=== PATIENT | female | born 1985 | race American Indian/Alaskan Native ===

== ENCOUNTER 2017-11-07 12:33 | Emergency (ER) | payer MEDICAID ==
[~2017-11-07] VITALS: Ht 167.6 cm; Wt 63.7 kg
[~2017-11-07 12:33] MED LIST: AMYL1CAP57 PO; BROM118S7 PO; CEPH500C5 PO; DULO60CA45 PO; INSU100C10 SQ; INSU100V9 SQ; LISI-600 PO; MULT-342 PO; ONDA4TAB12 PO; ONDA4TAB6 PO
[2017-11-07 13:26] LABS: BASOPHILS % (AUTO) 0.5 % (0-1); EOSINOPHILS # (AUTO) 0.1 X10'3 (0-0.9); EOSINOPHILS % (AUTO) 1.5 % (0-6); HEMATOCRIT 35.3 % (35.0-45.0); HEMOGLOBIN 12.3 g/dl (12.0-16.0); LYMPHOCYTES % (AUTO) 30.7 % (21-51); MEAN CORPUSCULAR HEMOGLOBIN 28.1 PG (27.0-31.0); MEAN CORPUSCULAR HGB CONC 34.8 % (33.0-36.5); MEAN CORPUSCULAR VOLUME 80.9 FL (78-98); MEAN PLATELET VOLUME 9.9 FL (7.4-10.4); MONOCYTES # (AUTO) 0.3 X10'3 (0-0.9); MONOCYTES % (AUTO) 5.1 % (2-12); NEUTROPHILS % (AUTO) 62.2 % (42-75); PLATELET COUNT 312 X10'3 (140-440); RED BLOOD COUNT 4.37 X10'6 (4.20-5.60); RED CELL DISTRIBUTION WIDTH 14.2 % (11.5-14.5); WHITE BLOOD COUNT 6.4 X10'3 (4.5-11.0)
[2017-11-07 13:29] LABS: CLARITY,URINE SLIGHTLY CLOUDY (Clear); COLOR,URINE STRAW (Yellow); GLUCOSE, URINE >=1000 mg/dl (Neg); KETONES,URINE NEGATIVE (Neg); LEUKOCYTE ESTERASE ,URINE NEGATIVE (Neg); NITRITES, URINE POSITIVE (Neg); OCCULT BLOOD,URINE TRACE-INTACT (Neg); PH,URINE 5.5 (4.8-8.0); PROTEIN,URINE TRACE mg/dl (Neg); UROBILINOGEN,URINE 0.2 E.U/dL (0.2-1.0)
[2017-11-07 13:30] LABS: URINE HCG NEGATIVE (NEG)
[2017-11-07 13:31] LABS: UA COLLECTION TYPE CLN CATCH MIDSTREAM
[2017-11-07 13:35] LABS: PROTHROMBIN TIME 10.5 SECONDS (9.0-12.0)
[2017-11-07 13:44] LABS: ALANINE AMINOTRANSFERASE 31 U/L (12-78); ALBUMIN 3.5 G/DL (3.4-5.0); ALBUMIN/GLOBULIN RATIO 0.8 (1.1-1.5); ALKALINE PHOSPHATASE 173 IU/L (46-116); ANION GAP 13 (8-16); ASPARTATE AMINO TRANSFERASE 24 U/L (10-37); BILIRUBIN,TOTAL 0.3 MG/DL (0.1-1.0); BLOOD UREA NITROGEN 5 MG/DL (7-18); BUN/CREATININE RATIO 5.6 (6.6-38.0); CALCIUM 8.3 MG/DL (8.5-10.1); CHLORIDE 94 MMOL/L (99-107); LIPASE < 50 U/L (73-393); POTASSIUM 3.9 MMOL/L (3.5-5.1); SODIUM 133 MMOL/L (135-145); TOTAL CARBON DIOXIDE 26.2 MMOL/L (24-32); TOTAL PROTEIN 7.9 G/DL (6.4-8.2); eGFR 72 ML/MIN
[2017-11-07 13:45] LABS: GLUCOSE 533 MG/DL (70-104)
[2017-11-07 13:49] LABS: BACTERIA,URINE 4+ /HPF (Neg); SQUAMOUS EPITHELIAL CELL,UR MODERATE /LPF (FEW)
[2017-11-07 13:51] LABS: WBC,URINE 0-4 /HPF (0-4)
[2017-11-07] MEDS ORDERED: ondansetron/PF 4mg/2ml inj IV ONE (14:10)
[2017-11-07] MEDS ORDERED: HYDROmorphone 1 mg/ml syringe IV PRN (14:10)
[2017-11-07] MEDS ORDERED: HYDROmorphone 2mg/ml vial IV ONE (14:20)
[2017-11-07 14:33] LABS: TROPONIN I < 0.04 NG/ML (0.0-0.05)
[2017-11-07] MEDS ORDERED: normal saline 1000ml 1,000 ML IV ONE ×2 (14:35)
[2017-11-07] MEDS: HYDROmorphone 2mg/ml vial IV PRN ×2 (15:16→15:39)
[2017-11-07] MEDS ORDERED: ONDA4TAB6 PO (15:27)
[2017-11-07] MEDS ORDERED: HYDROmorphone 1 mg/ml syringe IV ONE (15:30)
[2017-11-07 16:24] VITALS: BP 155/116
== END 2017-11-07 16:26 | disposition home or self-care (01) ==
LOC: ER 12:34
DX: E86.0 Dehydration (principal); E11.65 Type 2 diabetes mellitus with hyperglycemia; E78.00 Pure hypercholesterolemia, unspecified; I10 Essential (primary) hypertension; G89.29 Other chronic pain; J45.909 Unspecified asthma, uncomplicated; Z90.49 Acquired absence of other specified parts of digestive tract; Z88.5 Allergy status to narcotic agent; Z79.4 Long term (current) use of insulin; Z98.890 Other specified postprocedural states; Z56.0 Unemployment, unspecified
CPT/HCPCS: 36415; 80053; 81001; 81025; 82948; 83690; 84484; 85025; 85610; 87077; 87088; 87186; 96361; 96374; 96375; 96376; 99284; J1170; J2405; J7030

== ENCOUNTER 2017-11-11 14:44 | Inpatient (IN) | payer MEDICAID ==
[~2017-11-11] VITALS: Ht 167.6 cm; Wt 64.0 kg
[2017-11-11] MEDS ORDERED: normal saline 1000ML IV soln IVB ONE ×2 (15:15→16:40)
[2017-11-11] MEDS ORDERED: diphenhydrAMINE 50 mg/ml inj IV ONE (15:15)
[2017-11-11] MEDS ORDERED: proCHLORperazine 10 MG/2 ml inj IV ONE (15:15)
[2017-11-11] MEDS ORDERED: morphine 4 MG/ML inj SYRINge IV ONE (15:15)
[2017-11-11] MEDS ORDERED: ondansetron/PF 4mg/2ml inj IV ONE (15:15)
[2017-11-11 15:46] LABS: BASOPHILS % (AUTO) 0.2 % (0-1); EOSINOPHILS # (AUTO) 0.1 X10'3 (0-0.9); EOSINOPHILS % (AUTO) 1.3 % (0-6); HEMATOCRIT 32.4 % (35.0-45.0); HEMOGLOBIN 11.2 g/dl (12.0-16.0); LYMPHOCYTES # (AUTO) 1.6 X10'3 (1.1-4.8); LYMPHOCYTES % (AUTO) 19.5 % (21-51); MEAN CORPUSCULAR HEMOGLOBIN 28.1 PG (27.0-31.0); MEAN CORPUSCULAR HGB CONC 34.7 % (33.0-36.5); MEAN PLATELET VOLUME 9.7 FL (7.4-10.4); MONOCYTES # (AUTO) 0.4 X10'3 (0-0.9); MONOCYTES % (AUTO) 4.6 % (2-12); NEUTROPHILS # (AUTO) 6.1 X10'3 (1.8-7.7); NEUTROPHILS % (AUTO) 74.4 % (42-75); PLATELET COUNT 273 X10'3 (140-440); RED BLOOD COUNT 4.01 X10'6 (4.20-5.60); RED CELL DISTRIBUTION WIDTH 13.8 % (11.5-14.5); WHITE BLOOD COUNT 8.3 X10'3 (4.5-11.0)
[2017-11-11] MEDS ORDERED: mag hydrox/Alum hydrox/simeth 30ml oral suspension PO PRN (15:55)
[2017-11-11] MEDS ORDERED: magnesium 4gm in 100ml NS 100 ML IV PRN (15:55)
[2017-11-11] MEDS ORDERED: potassium Cl 20 mEq SR tablet PO PRN (15:55)
[2017-11-11] MEDS ORDERED: dextrose ORAL solution 15 GM/59 ML bottle PO PRN ×2 (15:55)
[2017-11-11] MEDS ORDERED: acetaminophen 325mg tablet PO PRN ×2 (15:55)
[2017-11-11] MEDS ORDERED: magnesium Cl slow-release 64mg tablet PO PRN (15:55)
[2017-11-11] MEDS ORDERED: glucagon, human recombinant 1mg kit SUBCUT PRN (15:55)
[2017-11-11] MEDS ORDERED: HYDROcodone/acetaminophen 5mg/325mg tablet PO PRN (15:55)
[2017-11-11] MEDS ORDERED: magnesium 2GM in 50ml NS 50 ML IV PRN (15:55)
[2017-11-11] MEDS ORDERED: dextrose 50%-water 50ml dispensing syringe IV PRN ×2 (15:55)
[2017-11-11] MEDS ORDERED: potassium Cl 40MEQ/NS 500ml 500 ML IV PRN ×2 (15:55)
[2017-11-11] MEDS ORDERED: MESSAGE TO PHARMACY PO ONE (15:55)
[2017-11-11] MEDS ORDERED: magnesium hydroxide 30ml (MOM) UD suspension PO PRN (15:55)
[2017-11-11 16:09] LABS: HEMOGLOBIN A1C > 14.0 % (4.5-6.2)
[2017-11-11 16:19] LABS: ALANINE AMINOTRANSFERASE 43 U/L (12-78); ALBUMIN 3.4 G/DL (3.4-5.0); ALBUMIN/GLOBULIN RATIO 0.9 (1.1-1.5); ALKALINE PHOSPHATASE 189 IU/L (46-116); ANION GAP 10 (8-16); ASPARTATE AMINO TRANSFERASE 91 U/L (10-37); BILIRUBIN,TOTAL 0.2 MG/DL (0.1-1.0); BLOOD UREA NITROGEN 12 MG/DL (7-18); CALCIUM 7.9 MG/DL (8.5-10.1); CHLORIDE 90 MMOL/L (99-107); POTASSIUM 3.6 MMOL/L (3.5-5.1); SODIUM 124 MMOL/L (135-145); TOTAL CARBON DIOXIDE 23.6 MMOL/L (24-32); TOTAL PROTEIN 7.3 G/DL (6.4-8.2); eGFR 52 ML/MIN
[2017-11-11 16:21] LABS: GLUCOSE 660 MG/DL (70-104)
[2017-11-11 16:32] LABS: AMYLASE 48 U/L (25-115); LIPASE < 50 U/L (73-393)
[2017-11-11] MEDS ORDERED: insulin regular, human 10 units/0.1 ml syringe IV ONE (16:40)
[2017-11-11] MEDS: pantoprazole 40 MG vial IV SCH (16:53)
[2017-11-11] MEDS: morphine 5 MG/ML injection IV PRN ×2 (16:56→20:16)
[2017-11-11 17:31] LABS: ABG BASE EXCESS -6.6 mmol/L (-2.0-3.0); ABG HCO3 18.2 mmol/L (22.0-26.0); ABG OXYGEN SATURATION 93.6 % (95-98); ABG PH (T) 7.347 (7.350-7.450); ABG PO2 (T) 72.3 mmHg (83-108); ALLEN'S TEST Positive; FCOHb 0.3 % (0.5-1.5); FMetHb 0.3 % (0.3-1.12); TOTAL HEMOGLOBIN 11.9 G/dl (12.0-16.0)
[2017-11-11] MEDS ORDERED: METO10TA3 (17:43)
[2017-11-11] MEDS ORDERED: DIPH1TAB29 (17:43)
[2017-11-11] MEDS ORDERED: AMIT-106 (17:43)
[2017-11-11] MEDS ORDERED: HYDR-3964 (17:43)
[2017-11-11] MEDS: normal saline 1000ml 1,000 ML IV SCH ×2 (17:59→22:34)
[2017-11-11 19:13] LABS: CLARITY,URINE CLOUDY (Clear); COLOR,URINE STRAW (Yellow); GLUCOSE, URINE >=1000 mg/dl (Neg); KETONES,URINE NEGATIVE (Neg); LEUKOCYTE ESTERASE ,URINE SMALL (Neg); NITRITES, URINE NEGATIVE (Neg); OCCULT BLOOD,URINE MODERATE (Neg); PROTEIN,URINE NEGATIVE (Neg); UROBILINOGEN,URINE 0.2 E.U/dL (0.2-1.0)
[2017-11-11 19:22] LABS: UA COLLECTION TYPE CLN CATCH MIDSTREAM
[2017-11-11 19:28] LABS: WBC,URINE 20-30 /HPF (0-4)
[2017-11-11 19:30] LABS: BACTERIA,URINE 4+ /HPF (Neg); SQUAMOUS EPITHELIAL CELL,UR MODERATE /LPF (FEW)
[2017-11-11 19:32] LABS: AMORPHOUS URATES 1+
[2017-11-11 19:33] LABS: YEAST FEW /HPF (NEGATIVE)
[2017-11-11] MEDS ORDERED: cefepime 2g/NS 100ml ADVANTAGE 100 ML IV SCH (20:00)
[2017-11-11] MEDS: ondansetron/PF 4mg/2ml inj IV PRN (20:16)
[2017-11-11] MEDS: cefepime 1GM/100ML NS ADD-VANTAGE BAG IV SCH (20:19)
[2017-11-11] MEDS: HYDROcodone/acetaminophen 10/325mg tab PO PRN (20:23)
[2017-11-11] MEDS ORDERED: temazepam 15mg capsule PO PRN (21:00)
[2017-11-11] MEDS: diatr meglu/diatrizoate 30ml oral sol.-(3 dose) bottle PO SCH (21:33)
[2017-11-11] MEDS: insulin glargine (Lantus) pen - multi-dose SQ SCH (21:54)
[2017-11-11 22:50] VITALS: BP 124/99
[2017-11-12] MEDS: morphine 5 MG/ML injection IV PRN ×6 (01:13→21:30)
[2017-11-12] MEDS: normal saline 1000ml 1,000 ML IV SCH ×3 (01:15→17:59)
[2017-11-12] MEDS: HYDROcodone/acetaminophen 10/325mg tab PO PRN ×5 (03:41→22:42)
[2017-11-12 05:20] LABS: BASOPHILS # (AUTO) 0.1 X10'3 (0-0.2); EOSINOPHILS # (AUTO) 0.1 X10'3 (0-0.9); EOSINOPHILS % (AUTO) 1.8 % (0-6); HEMATOCRIT 31.6 % (35.0-45.0); HEMOGLOBIN 10.9 g/dl (12.0-16.0); LYMPHOCYTES # (AUTO) 2.6 X10'3 (1.1-4.8); LYMPHOCYTES % (AUTO) 36.6 % (21-51); MEAN CORPUSCULAR HGB CONC 34.6 % (33.0-36.5); MEAN CORPUSCULAR VOLUME 81.1 FL (78-98); MONOCYTES # (AUTO) 0.5 X10'3 (0-0.9); MONOCYTES % (AUTO) 7.2 % (2-12); NEUTROPHILS # (AUTO) 3.8 X10'3 (1.8-7.7); NEUTROPHILS % (AUTO) 53.4 % (42-75); PLATELET COUNT 248 X10'3 (140-440); RED BLOOD COUNT 3.89 X10'6 (4.20-5.60); RED CELL DISTRIBUTION WIDTH 14.5 % (11.5-14.5); WHITE BLOOD COUNT 7.1 X10'3 (4.5-11.0)
[2017-11-12 05:53] LABS: ALANINE AMINOTRANSFERASE 36 U/L (12-78); ALBUMIN 3.1 G/DL (3.4-5.0); ALBUMIN/GLOBULIN RATIO 0.8 (1.1-1.5); ALKALINE PHOSPHATASE 160 IU/L (46-116); ANION GAP 7 (8-16); ASPARTATE AMINO TRANSFERASE 30 U/L (10-37); BILIRUBIN,TOTAL 0.2 MG/DL (0.1-1.0); BLOOD UREA NITROGEN 7 MG/DL (7-18); BUN/CREATININE RATIO 11.7 (6.6-38.0); CALCIUM 7.9 MG/DL (8.5-10.1); CHLORIDE 104 MMOL/L (99-107); GLUCOSE 261 MG/DL (70-104); MAGNESIUM 1.7 MG/DL (1.5-2.4); POTASSIUM 3.2 MMOL/L (3.5-5.1); SODIUM 137 MMOL/L (135-145); TOTAL CARBON DIOXIDE 26.1 MMOL/L (24-32); TOTAL PROTEIN 6.8 G/DL (6.4-8.2); eGFR > 90 ML/MIN
[2017-11-12] MEDS: cefepime 1GM/100ML NS ADD-VANTAGE BAG IV SCH ×2 (07:35→20:32)
[2017-11-12] MEDS: pantoprazole 40 MG vial IV SCH (07:35)
[2017-11-12] MEDS: diatr meglu/diatrizoate 30ml oral sol.-(3 dose) bottle PO SCH ×2 (07:35→09:30)
[2017-11-12] MEDS: potassium Cl 20 mEq SR tablet PO PRN ×3 (07:36→16:46)
[2017-11-12] MEDS: lisinopril 20mg tablet PO SCH (07:36)
[2017-11-12 08:00] VITALS: BP 142/91
[2017-11-12] MEDS ORDERED: PROTEASE PO SCH (08:00)
[2017-11-12] MEDS ORDERED: AMYLASE PO SCH (08:00)
[2017-11-12] MEDS ORDERED: LIPASE PO SCH (08:00)
[2017-11-12] MEDS: enoxaparin 40mg/0.4ml syringe SQ SCH (08:00)
[2017-11-12] MEDS: K and/or MAG REPLACEMENT MC SCH (08:00)
[2017-11-12] MEDS ORDERED: iohexol 300mg/ml 100ml inj. ONE (08:56)
[2017-11-12] MEDS: ondansetron/PF 4mg/2ml inj IV PRN ×2 (09:46→21:30)
[2017-11-12] MEDS ORDERED: FLU VACC QS2017-18 36MOS UP/PF 60 MCG/0.5 ML SYRINGE IMVAC ONE (10:00)
[2017-11-12] MEDS ORDERED: pneumococcal 23-VAL P-sac vacc 25 mcg/0.5ml vial IMVAC ONE (10:00)
[2017-11-12] MEDS: LIPASE/PROTEASE/AMYLASE 4,200 unit CAPSULE.DR PO SCH ×3 (10:42→17:52)
[2017-11-12 11:00] VITALS: BP 142/102
[2017-11-12] MEDS: insulin Lispro (HumaLOG) vial - multi-dose SQ SCH ×2 (13:40→20:05)
[2017-11-12 19:30] VITALS: BP 130/87
[2017-11-12] MEDS: lactobacillus rhamnosus 10,000 MMU CELLS/CAPSULE PO SCH (20:32)
[2017-11-12] MEDS: insulin glargine (Lantus) pen - multi-dose SQ SCH (21:52)
[2017-11-12 23:30] VITALS: BP 163/106
[2017-11-13] MEDS: normal saline 1000ml 1,000 ML IV SCH ×3 (01:29→14:56)
[2017-11-13] MEDS: morphine 5 MG/ML injection IV PRN ×4 (01:34→17:25)
[2017-11-13] MEDS: HYDROcodone/acetaminophen 10/325mg tab PO PRN ×4 (03:51→16:16)
[2017-11-13] MEDS: ondansetron/PF 4mg/2ml inj IV PRN (05:39)
[2017-11-13 05:43] LABS: BASOPHILS % (AUTO) 0.5 % (0-1); EOSINOPHILS # (AUTO) 0.2 X10'3 (0-0.9); EOSINOPHILS % (AUTO) 2.5 % (0-6); HEMATOCRIT 29.1 % (35.0-45.0); HEMOGLOBIN 9.8 g/dl (12.0-16.0); LYMPHOCYTES # (AUTO) 1.8 X10'3 (1.1-4.8); LYMPHOCYTES % (AUTO) 22.6 % (21-51); MEAN CORPUSCULAR HEMOGLOBIN 27.8 PG (27.0-31.0); MEAN CORPUSCULAR HGB CONC 33.6 % (33.0-36.5); MEAN CORPUSCULAR VOLUME 82.6 FL (78-98); MONOCYTES # (AUTO) 0.6 X10'3 (0-0.9); MONOCYTES % (AUTO) 7.5 % (2-12); NEUTROPHILS # (AUTO) 5.4 X10'3 (1.8-7.7); NEUTROPHILS % (AUTO) 66.9 % (42-75); PLATELET COUNT 226 X10'3 (140-440); RED BLOOD COUNT 3.52 X10'6 (4.20-5.60); RED CELL DISTRIBUTION WIDTH 14.5 % (11.5-14.5); WHITE BLOOD COUNT 8.1 X10'3 (4.5-11.0)
[2017-11-13 06:19] LABS: ALANINE AMINOTRANSFERASE 31 U/L (12-78); ALBUMIN 2.8 G/DL (3.4-5.0); ALBUMIN/GLOBULIN RATIO 0.8 (1.1-1.5); ALKALINE PHOSPHATASE 140 IU/L (46-116); ASPARTATE AMINO TRANSFERASE 20 U/L (10-37); BILIRUBIN,TOTAL 0.3 MG/DL (0.1-1.0); BLOOD UREA NITROGEN 9 MG/DL (7-18); BUN/CREATININE RATIO 12.9 (6.6-38.0); CALCIUM 7.8 MG/DL (8.5-10.1); GLUCOSE 332 MG/DL (70-104); MAGNESIUM 1.7 MG/DL (1.5-2.4); TOTAL PROTEIN 6.2 G/DL (6.4-8.2); eGFR > 90 ML/MIN
[2017-11-13 06:45] LABS: ANION GAP 6 (8-16); CHLORIDE 104 MMOL/L (99-107); POTASSIUM 4.1 MMOL/L (3.5-5.1); SODIUM 136 MMOL/L (135-145)
[2017-11-13 07:17] VITALS: BP 159/101
[2017-11-13] MEDS ORDERED: pantoprazole 40mg Tablet.DR PO SCH (07:30)
[2017-11-13] MEDS: K and/or MAG REPLACEMENT MC SCH (08:00)
[2017-11-13] MEDS: lactobacillus rhamnosus 10,000 MMU CELLS/CAPSULE PO SCH (08:08)
[2017-11-13] MEDS: cefepime 1GM/100ML NS ADD-VANTAGE BAG IV SCH (08:08)
[2017-11-13] MEDS: LIPASE/PROTEASE/AMYLASE 4,200 unit CAPSULE.DR PO SCH ×3 (08:08→17:23)
[2017-11-13] MEDS: enoxaparin 40mg/0.4ml syringe SQ SCH (08:09)
[2017-11-13] MEDS: lisinopril 20mg tablet PO SCH (08:09)
[2017-11-13] MEDS: insulin Lispro (HumaLOG) vial - multi-dose SQ SCH ×2 (08:18→13:29)
[2017-11-13 10:42] VITALS: BP 133/83
[2017-11-13] MEDS ORDERED: morphine 5 MG/ML injection IV ONE (12:15)
[2017-11-13] MEDS ORDERED: cefepime 1GM/100ML NS ADD-VANTAGE BAG IV ONE (17:00)
== END 2017-11-13 19:30 | disposition home or self-care (01) | DRG 463 ==
LOC: ER 14:44 → ED HOLD 15:54 → SUR 3N 23:16
PROVIDERS: ADMIT Internal Medicine; ATTEND Internal Medicine
DX: N39.0 Urinary tract infection, site not specified (principal); E87.2 Acidosis; E11.65 Type 2 diabetes mellitus with hyperglycemia; E78.5 Hyperlipidemia, unspecified; D64.9 Anemia, unspecified; E78.00 Pure hypercholesterolemia, unspecified; F32.9 Major depressive disorder, single episode, unspecified; F41.9 Anxiety disorder, unspecified; G89.4 Chronic pain syndrome; I10 Essential (primary) hypertension; J45.909 Unspecified asthma, uncomplicated; K86.1 Other chronic pancreatitis; Z16.24 Resistance to multiple antibiotics; Z79.891 Long term (current) use of opiate analgesic; Z87.11 Personal history of peptic ulcer disease; Z88.5 Allergy status to narcotic agent; Z88.6 Allergy status to analgesic agent; Z88.8 Allergy status to other drugs, medicaments and biological substances; Z79.4 Long term (current) use of insulin; Z79.899 Other long term (current) drug therapy; Z90.49 Acquired absence of other specified parts of digestive tract
CPT/HCPCS: 36415; 36600; 74177; 80053; 81001; 82150; 82803; 82948; 83036; 83605; 83690; 83735; 85018; 85025; 87040; 87070; 87077; 87088; 87186; 90732; 99285; C9113; J0692; J0780; J1200; J1650; J1815; J2270; J2405; J7030; Q2037; Q9963; Q9967

== ENCOUNTER 2017-12-30 12:10 | Emergency (ER) | payer MEDICAID ==
[~2017-12-30] VITALS: Ht 167.6 cm; Wt 62.0 kg
[~2017-12-30 12:10] MED LIST changes: +AMIT-106; -BROM118S7 PO; -CEPH500C5 PO; +DIPH1TAB29; -DULO60CA45 PO; +HYDR-3964; +METO10TA3; -ONDA4TAB12 PO
[2017-12-30] MEDS ORDERED: morphine IR (immed. release) 30mg tablet PO ONE (12:50)
[2017-12-30] MEDS ORDERED: bacitracin 15gm ointment TP ONE (12:55)
[2017-12-30] MEDS ORDERED: LIDOcaine 1.5% w/epinephrine 1:200,000 5ml ampul IJ ONE (12:55)
[2017-12-30] MEDS ORDERED: acetaminophen 325mg tablet PO ONE (12:55)
[2017-12-30 13:03] LABS: URINE HCG NEGATIVE (NEG)
[2017-12-30 13:15] LABS: CLARITY,URINE CLOUDY (Clear); COLOR,URINE YELLOW (Yellow); GLUCOSE, URINE >=1000 mg/dl (Neg); KETONES,URINE NEGATIVE (Neg); LEUKOCYTE ESTERASE ,URINE TRACE (Neg); NITRITES, URINE POSITIVE (Neg); OCCULT BLOOD,URINE TRACE-INTACT (Neg); PH,URINE 5.5 (4.8-8.0); PROTEIN,URINE 30 mg/dl (Neg); UA COLLECTION TYPE CLN CATCH MIDSTREAM; UROBILINOGEN,URINE 0.2 E.U/dL (0.2-1.0)
[2017-12-30 13:26] LABS: BACTERIA,URINE 3+ /HPF (Neg); SQUAMOUS EPITHELIAL CELL,UR MODERATE /LPF (FEW); WBC,URINE 50-100 /HPF (0-4)
[2017-12-30 13:27] LABS: RBC,URINE 0-2 /HPF (0-2); WBC CLUMPS,URINE MODERATE /HPF (NEGATIVE)
[2017-12-30] MEDS ORDERED: CLIN150C2 PO (14:08)
[2017-12-30 14:18] VITALS: BP 132/56
== END 2017-12-30 14:19 | disposition home or self-care (01) ==
LOC: ER 12:11
DX: N73.9 Female pelvic inflammatory disease, unspecified (principal); E78.00 Pure hypercholesterolemia, unspecified; I10 Essential (primary) hypertension; J45.909 Unspecified asthma, uncomplicated; E11.9 Type 2 diabetes mellitus without complications; G89.29 Other chronic pain; Z90.49 Acquired absence of other specified parts of digestive tract; Z56.0 Unemployment, unspecified; Z88.5 Allergy status to narcotic agent; Z88.8 Allergy status to other drugs, medicaments and biological substances; Z91.018 Allergy to other foods; Z79.82 Long term (current) use of aspirin; Z79.899 Other long term (current) drug therapy
CPT/HCPCS: 56405; 81001; 81025; 87070; 87075; 87077; 87088; 87186; 99284; A6258; A6266; J3490

== ENCOUNTER 2018-01-17 03:37 | Emergency (ER) | payer MEDICAID ==
[~2018-01-17] VITALS: Ht 162.6 cm; Wt 57.6 kg
[2018-01-17 04:37] LABS: BASOPHILS # (AUTO) 0.1 X10'3 (0-0.2); BASOPHILS % (AUTO) 0.5 % (0-1); EOSINOPHILS # (AUTO) 0.2 X10'3 (0-0.9); EOSINOPHILS % (AUTO) 2.2 % (0-6); HEMATOCRIT 34.3 % (35.0-45.0); HEMOGLOBIN 11.8 g/dl (12.0-16.0); LYMPHOCYTES # (AUTO) 2.3 X10'3 (1.1-4.8); LYMPHOCYTES % (AUTO) 22.7 % (21-51); MEAN CORPUSCULAR HEMOGLOBIN 28.3 PG (27.0-31.0); MEAN CORPUSCULAR HGB CONC 34.4 % (33.0-36.5); MEAN CORPUSCULAR VOLUME 82.2 FL (78-98); MEAN PLATELET VOLUME 9.2 FL (7.4-10.4); MONOCYTES # (AUTO) 0.6 X10'3 (0-0.9); MONOCYTES % (AUTO) 6.4 % (2-12); NEUTROPHILS # (AUTO) 6.9 X10'3 (1.8-7.7); NEUTROPHILS % (AUTO) 68.2 % (42-75); PLATELET COUNT 289 X10'3 (140-440); RED BLOOD COUNT 4.18 X10'6 (4.20-5.60); RED CELL DISTRIBUTION WIDTH 13.9 % (11.5-14.5); WHITE BLOOD COUNT 10.1 X10'3 (4.5-11.0)
[2018-01-17] MEDS ORDERED: HYDROcodone/acetaminophen 10/325mg tab PO ONE (04:45)
[2018-01-17] MEDS ORDERED: ondansetron 4mg rapidly disintigrating tab PO ONE (04:45)
[2018-01-17 04:51] LABS: ALANINE AMINOTRANSFERASE 33 U/L (12-78); ALBUMIN 3.3 G/DL (3.4-5.0); ALBUMIN/GLOBULIN RATIO 0.8 (1.1-1.5); ALKALINE PHOSPHATASE 212 IU/L (46-116); ANION GAP 8 (8-16); ASPARTATE AMINO TRANSFERASE 21 U/L (10-37); BILIRUBIN,TOTAL 0.3 MG/DL (0.1-1.0); BLOOD UREA NITROGEN 18 MG/DL (7-18); BUN/CREATININE RATIO 18.8 (6.6-38.0); CALCIUM 8.5 MG/DL (8.5-10.1); CHLORIDE 95 MMOL/L (99-107); CREATININE 0.96 MG/DL (0.40-0.90); LIPASE < 50 U/L (73-393); POTASSIUM 4.4 MMOL/L (3.5-5.1); SODIUM 132 MMOL/L (135-145); TOTAL CARBON DIOXIDE 28.6 MMOL/L (24-32); TOTAL PROTEIN 7.7 G/DL (6.4-8.2); eGFR 67 ML/MIN
[2018-01-17 05:02] LABS: GLUCOSE 470 MG/DL (70-104)
[2018-01-17 05:04] LABS: URINE HCG NEGATIVE (NEG)
[2018-01-17] MEDS ORDERED: normal saline 1000ML IV soln IVB ONE (05:05)
[2018-01-17] MEDS ORDERED: insulin regular, human 10 units/0.1 ml syringe IV ONE (05:05)
[2018-01-17] MEDS ORDERED: morphine 4 MG/ML inj SYRINge IV ONE (05:10)
[2018-01-17 05:16] LABS: CLARITY,URINE CLEAR (Clear); COLOR,URINE YELLOW (Yellow); GLUCOSE, URINE >=1000 mg/dl (Neg); KETONES,URINE NEGATIVE (Neg); LEUKOCYTE ESTERASE ,URINE NEGATIVE (Neg); NITRITES, URINE NEGATIVE (Neg); OCCULT BLOOD,URINE NEGATIVE (Neg); PROTEIN,URINE NEGATIVE (Neg); UROBILINOGEN,URINE 0.2 E.U/dL (0.2-1.0)
[2018-01-17 05:20] LABS: UA COLLECTION TYPE CLN CATCH MIDSTREAM
[2018-01-17 05:28] LABS: BACTERIA,URINE 3+ /HPF (Neg); RBC,URINE 0-2 /HPF (0-2); WBC,URINE 0-4 /HPF (0-4)
[2018-01-17 05:29] LABS: MUCUS STRANDS NONE SEEN /LPF (Neg); SQUAMOUS EPITHELIAL CELL,UR FEW /LPF (FEW)
[2018-01-17 05:49] VITALS: BP 150/111
[2018-01-17] MEDS ORDERED: normal saline 1000ml 1,000 ML IV ONE (05:55)
== END 2018-01-17 07:11 | disposition home or self-care (01) ==
LOC: ER 03:38
DX: E11.65 Type 2 diabetes mellitus with hyperglycemia (principal); R10.84 Generalized abdominal pain; E78.00 Pure hypercholesterolemia, unspecified; I10 Essential (primary) hypertension; G89.29 Other chronic pain; J45.909 Unspecified asthma, uncomplicated; Z90.49 Acquired absence of other specified parts of digestive tract; Z88.5 Allergy status to narcotic agent; Z88.8 Allergy status to other drugs, medicaments and biological substances; Z88.6 Allergy status to analgesic agent; Z79.4 Long term (current) use of insulin; Z79.899 Other long term (current) drug therapy
CPT/HCPCS: 36415; 71045; 80053; 81001; 81025; 82948; 83690; 85025; 93005; 96361; 96374; 96375; 99285; J1815; J2270; J7030

== ENCOUNTER 2018-03-01 16:22 | Emergency (ER) | payer MEDICAID | END 2018-03-01 17:45 | disposition left against medical advice (07) | LOC: ER 16:23 | DX: J00 Acute nasopharyngitis [common cold] (principal); R39.198 Other difficulties with micturition; Z53.21 Procedure and treatment not carried out due to patient leaving prior to being seen by health care provider ==

== ENCOUNTER 2018-03-05 12:11 | Emergency (ER) | payer MEDICAID ==
[~2018-03-05] VITALS: Ht 167.6 cm; Wt 61.7 kg
[2018-03-05] MEDS ORDERED: normal saline 1000ML IV soln IVB ONE (12:35)
[2018-03-05] MEDS ORDERED: morphine 4 MG/ML inj SYRINge IV ONE (12:35)
[2018-03-05] MEDS ORDERED: ondansetron/PF 4mg/2ml inj IV ONE (12:35)
[2018-03-05 12:41] LABS: BASOPHILS # (AUTO) 0.1 X10'3 (0-0.2); BASOPHILS % (AUTO) 0.8 % (0-1); EOSINOPHILS # (AUTO) 0.2 X10'3 (0-0.9); EOSINOPHILS % (AUTO) 2.5 % (0-6); HEMATOCRIT 37.1 % (35.0-45.0); HEMOGLOBIN 12.9 g/dl (12.0-16.0); LYMPHOCYTES # (AUTO) 2.3 X10'3 (1.1-4.8); LYMPHOCYTES % (AUTO) 23.5 % (21-51); MEAN CORPUSCULAR HEMOGLOBIN 28.8 PG (27.0-31.0); MEAN CORPUSCULAR HGB CONC 34.9 % (33.0-36.5); MEAN CORPUSCULAR VOLUME 82.7 FL (78-98); MEAN PLATELET VOLUME 9.2 FL (7.4-10.4); MONOCYTES # (AUTO) 0.5 X10'3 (0-0.9); MONOCYTES % (AUTO) 4.8 % (2-12); NEUTROPHILS # (AUTO) 6.6 X10'3 (1.8-7.7); NEUTROPHILS % (AUTO) 68.4 % (42-75); PLATELET COUNT 293 X10'3 (140-440); RED BLOOD COUNT 4.49 X10'6 (4.20-5.60); RED CELL DISTRIBUTION WIDTH 13.4 % (11.5-14.5); WHITE BLOOD COUNT 9.7 X10'3 (4.5-11.0)
[2018-03-05 12:43] LABS: CLARITY,URINE CLOUDY (Clear); COLOR,URINE STRAW (Yellow); GLUCOSE, URINE >=1000 mg/dl (Neg); KETONES,URINE NEGATIVE (Neg); LEUKOCYTE ESTERASE ,URINE SMALL (Neg); NITRITES, URINE POSITIVE (Neg); OCCULT BLOOD,URINE MODERATE (Neg); PROTEIN,URINE 30 mg/dl (Neg); UROBILINOGEN,URINE 0.2 E.U/dL (0.2-1.0)
[2018-03-05 12:44] LABS: UA COLLECTION TYPE CLN CATCH MIDSTREAM
[2018-03-05 12:47] LABS: URINE HCG NEGATIVE (NEG)
[2018-03-05 12:48] LABS: BACTERIA,URINE 3+ /HPF (Neg); SQUAMOUS EPITHELIAL CELL,UR FEW /LPF (FEW); WBC CLUMPS,URINE MANY /HPF (NEGATIVE)
[2018-03-05 12:50] LABS: WBC,URINE TNTC /HPF (0-4); YEAST FEW /HPF (NEGATIVE)
[2018-03-05 12:55] LABS: ALANINE AMINOTRANSFERASE 25 U/L (12-78); ALBUMIN 3.4 G/DL (3.4-5.0); ALBUMIN/GLOBULIN RATIO 0.8 (1.1-1.5); ALKALINE PHOSPHATASE 160 IU/L (46-116); AMYLASE 41 U/L (25-115); ANION GAP 8 (8-16); ASPARTATE AMINO TRANSFERASE 27 U/L (10-37); BILIRUBIN,TOTAL 0.5 MG/DL (0.1-1.0); BLOOD UREA NITROGEN 12 MG/DL (7-18); BUN/CREATININE RATIO 13.6 (6.6-38.0); CALCIUM 8.7 MG/DL (8.5-10.1); CHLORIDE 96 MMOL/L (99-107); CREATININE 0.88 MG/DL (0.40-0.90); GLUCOSE 404 MG/DL (70-104); LIPASE < 50 U/L (73-393); SODIUM 133 MMOL/L (135-145); TOTAL CARBON DIOXIDE 28.9 MMOL/L (24-32); TOTAL PROTEIN 7.7 G/DL (6.4-8.2); eGFR 74 ML/MIN
[2018-03-05] MEDS ORDERED: LEVO500T2 PO (13:04)
[2018-03-05] MEDS ORDERED: potassium Cl oral solution 20 MEQ/15 ML PO ONE (13:05)
[2018-03-05] MEDS ORDERED: insulin regular, human 10 units/0.1 ml syringe IV ONE (13:05)
[2018-03-05 14:03] VITALS: BP 119/82
== END 2018-03-05 14:06 | disposition home or self-care (01) ==
LOC: ER 12:12
DX: N39.0 Urinary tract infection, site not specified (principal); E86.0 Dehydration; K86.1 Other chronic pancreatitis; E87.6 Hypokalemia; E78.00 Pure hypercholesterolemia, unspecified; E11.9 Type 2 diabetes mellitus without complications; J45.909 Unspecified asthma, uncomplicated; I10 Essential (primary) hypertension; G89.29 Other chronic pain; Z90.49 Acquired absence of other specified parts of digestive tract; Z88.5 Allergy status to narcotic agent; Z88.6 Allergy status to analgesic agent; Z88.8 Allergy status to other drugs, medicaments and biological substances; Z79.4 Long term (current) use of insulin; Z79.899 Other long term (current) drug therapy
CPT/HCPCS: 36415; 80053; 81001; 81025; 82150; 82948; 83690; 85025; 85610; 87077; 87088; 87186; 96361; 96374; 96375; 99285; J1815; J2270; J2405; J7030

== ENCOUNTER 2018-03-18 09:19 | Inpatient (IN) | payer MEDICAID ==
[~2018-03-18] VITALS: Ht 167.6 cm; Wt 61.4 kg
[~2018-03-18 09:19] MED LIST changes: +NITR100C6 PO
[2018-03-18] MEDS ORDERED: ondansetron/PF 4mg/2ml inj IV ONE (10:30)
[2018-03-18] MEDS ORDERED: normal saline 1000ML IV soln IVB ONE (10:30)
[2018-03-18] MEDS: morphine 4 MG/ML inj SYRINge IV PRN ×2 (10:42→11:57)
[2018-03-18 10:49] LABS: CLARITY,URINE CLOUDY (Clear); COLOR,URINE STRAW (Yellow); GLUCOSE, URINE >=1000 mg/dl (Neg); KETONES,URINE NEGATIVE (Neg); LEUKOCYTE ESTERASE ,URINE TRACE (Neg); NITRITES, URINE POSITIVE (Neg); OCCULT BLOOD,URINE TRACE-INTACT (Neg); PROTEIN,URINE NEGATIVE (Neg); UA COLLECTION TYPE CLN CATCH MIDSTREAM; UROBILINOGEN,URINE 0.2 E.U/dL (0.2-1.0)
[2018-03-18 10:52] LABS: BASOPHILS % (AUTO) 0.5 % (0-1); EOSINOPHILS # (AUTO) 0.3 X10'3 (0-0.9); EOSINOPHILS % (AUTO) 3.1 % (0-6); HEMATOCRIT 33.4 % (35.0-45.0); HEMOGLOBIN 11.6 g/dl (12.0-16.0); LYMPHOCYTES # (AUTO) 2.1 X10'3 (1.1-4.8); LYMPHOCYTES % (AUTO) 26.2 % (21-51); MEAN CORPUSCULAR HEMOGLOBIN 29.1 PG (27.0-31.0); MEAN CORPUSCULAR HGB CONC 34.8 % (33.0-36.5); MEAN CORPUSCULAR VOLUME 83.5 FL (78-98); MEAN PLATELET VOLUME 8.9 FL (7.4-10.4); MONOCYTES # (AUTO) 0.6 X10'3 (0-0.9); MONOCYTES % (AUTO) 7.4 % (2-12); NEUTROPHILS % (AUTO) 62.8 % (42-75); PLATELET COUNT 335 X10'3 (140-440); RED CELL DISTRIBUTION WIDTH 13.5 % (11.5-14.5); WHITE BLOOD COUNT 7.9 X10'3 (4.5-11.0)
[2018-03-18 10:57] LABS: BACTERIA,URINE 3+ /HPF (Neg); RBC,URINE 0-2 /HPF (0-2); SQUAMOUS EPITHELIAL CELL,UR FEW /LPF (FEW); WBC CLUMPS,URINE MANY /HPF (NEGATIVE); WBC,URINE TNTC /HPF (0-4)
[2018-03-18 11:13] LABS: URINE HCG NEGATIVE (NEG)
[2018-03-18 11:16] LABS: ALANINE AMINOTRANSFERASE 32 U/L (12-78); ALBUMIN 3.2 G/DL (3.4-5.0); ALBUMIN/GLOBULIN RATIO 0.8 (1.1-1.5); ALKALINE PHOSPHATASE 205 IU/L (46-116); ANION GAP 6 (8-16); ASPARTATE AMINO TRANSFERASE 21 U/L (10-37); BILIRUBIN,TOTAL 0.3 MG/DL (0.1-1.0); BLOOD UREA NITROGEN 8 MG/DL (7-18); CHLORIDE 93 MMOL/L (99-107); CREATININE 0.89 MG/DL (0.40-0.90); GLUCOSE 442 MG/DL (70-104); LIPASE < 50 U/L (73-393); POTASSIUM 4.4 MMOL/L (3.5-5.1); SODIUM 129 MMOL/L (135-145); TOTAL CARBON DIOXIDE 30.1 MMOL/L (24-32); TOTAL PROTEIN 7.4 G/DL (6.4-8.2); eGFR 73 ML/MIN
[2018-03-18] MEDS ORDERED: acetaminophen 325mg tablet PO PRN (12:40)
[2018-03-18] MEDS ORDERED: magnesium hydroxide 30ml (MOM) UD suspension PO PRN (12:40)
[2018-03-18] MEDS ORDERED: potassium Cl 40MEQ/NS 500ml 500 ML IV PRN ×2 (12:40)
[2018-03-18] MEDS ORDERED: potassium Cl 20 mEq SR tablet PO PRN ×2 (12:40)
[2018-03-18] MEDS ORDERED: magnesium 2GM in 50ml NS 50 ML IV PRN (12:40)
[2018-03-18] MEDS ORDERED: magnesium 4gm in 100ml NS 100 ML IV PRN (12:40)
[2018-03-18] MEDS ORDERED: magnesium Cl slow-release 64mg tablet PO PRN (12:40)
[2018-03-18] MEDS ORDERED: mag hydrox/Alum hydrox/simeth 30ml oral suspension PO PRN (12:40)
[2018-03-18] MEDS ORDERED: glucagon, human recombinant 1mg kit SUBCUT PRN (12:45)
[2018-03-18] MEDS ORDERED: PIOG30TA10 CORPAK (12:45)
[2018-03-18] MEDS ORDERED: LIPA1CAP18 PO ×2 (12:45)
[2018-03-18] MEDS ORDERED: dextrose ORAL solution 15 GM/59 ML bottle PO PRN ×2 (12:45)
[2018-03-18] MEDS ORDERED: PIOG30TA10 PO (12:45)
[2018-03-18] MEDS ORDERED: MESSAGE TO PHARMACY PO ONE (12:45)
[2018-03-18] MEDS ORDERED: dextrose 50%-water 50ml dispensing syringe IV PRN ×2 (12:45)
[2018-03-18] MEDS ORDERED: magnesium/D5W IVPB 100 ML IV PRN (12:55)
[2018-03-18] MEDS: normal saline 1000ml 1,000 ML IV SCH ×2 (12:56→22:24)
[2018-03-18 13:09] LABS: HEMOGLOBIN A1C 13.8 % (4.5-6.2)
[2018-03-18] MEDS: ertapenem sod inj 1 GM in normal saline 100ml IV soln 100 ML IV SCH (13:17)
[2018-03-18] MEDS: ondansetron/PF 4mg/2ml inj IV PRN (13:44)
[2018-03-18] MEDS: insulin Lispro (HumaLOG) vial - multi-dose SQ SCH ×2 (15:43→19:00)
[2018-03-18] MEDS ORDERED: PROTEASE PO PRN (16:20)
[2018-03-18] MEDS ORDERED: AMYLASE PO PRN (16:20)
[2018-03-18] MEDS ORDERED: LIPASE PO PRN (16:20)
[2018-03-18] MEDS: morphine 2 MG/ML inj. syringe IV PRN ×2 (17:03→21:20)
[2018-03-18] MEDS: AMYLASE PO SCH (17:29)
[2018-03-18] MEDS: LIPASE PO SCH (17:29)
[2018-03-18] MEDS: PROTEASE PO SCH (17:29)
[2018-03-18 19:15] VITALS: BP 138/99
[2018-03-18] MEDS: insulin glargine (Lantus) pen - multi-dose SQ SCH ×2 (21:00→21:18)
[2018-03-18] MEDS: heparin, porcine 5000 units/ml vial SQ SCH (21:15)
[2018-03-19] VITALS: BP_SYST 120; BP_SYST 142; BP_DIAS 78; BP_DIAS 94
[2018-03-19] MEDS: morphine 2 MG/ML inj. syringe IV PRN ×5 (01:31→20:04)
[2018-03-19 05:13] LABS: BASOPHILS # (AUTO) 0.1 X10'3 (0-0.2); BASOPHILS % (AUTO) 0.4 % (0-1); EOSINOPHILS # (AUTO) 0.3 X10'3 (0-0.9); EOSINOPHILS % (AUTO) 2.1 % (0-6); HEMATOCRIT 33.9 % (35.0-45.0); HEMOGLOBIN 11.7 g/dl (12.0-16.0); LYMPHOCYTES # (AUTO) 1.8 X10'3 (1.1-4.8); LYMPHOCYTES % (AUTO) 14.7 % (21-51); MEAN CORPUSCULAR HEMOGLOBIN 28.8 PG (27.0-31.0); MEAN CORPUSCULAR HGB CONC 34.4 % (33.0-36.5); MEAN CORPUSCULAR VOLUME 83.6 FL (78-98); MEAN PLATELET VOLUME 10.3 FL (7.4-10.4); MONOCYTES # (AUTO) 0.5 X10'3 (0-0.9); MONOCYTES % (AUTO) 4.1 % (2-12); NEUTROPHILS # (AUTO) 9.4 X10'3 (1.8-7.7); NEUTROPHILS % (AUTO) 78.7 % (42-75); PLATELET COUNT 337 X10'3 (140-440); RED BLOOD COUNT 4.05 X10'6 (4.20-5.60); RED CELL DISTRIBUTION WIDTH 13.6 % (11.5-14.5)
[2018-03-19 05:27] LABS: ALANINE AMINOTRANSFERASE 24 U/L (12-78); ALBUMIN/GLOBULIN RATIO 0.8 (1.1-1.5); ALKALINE PHOSPHATASE 188 IU/L (46-116); ANION GAP 7 (8-16); ASPARTATE AMINO TRANSFERASE 17 U/L (10-37); BILIRUBIN,TOTAL 0.3 MG/DL (0.1-1.0); BLOOD UREA NITROGEN 10 MG/DL (7-18); BUN/CREATININE RATIO 13.9 (6.6-38.0); CALCIUM 8.4 MG/DL (8.5-10.1); CHLORIDE 97 MMOL/L (99-107); CREATININE 0.72 MG/DL (0.40-0.90); GLUCOSE 347 MG/DL (70-104); MAGNESIUM 1.5 MG/DL (1.5-2.4); SODIUM 134 MMOL/L (135-145); TOTAL CARBON DIOXIDE 30.4 MMOL/L (24-32); eGFR > 90 ML/MIN
[2018-03-19 08:00] VITALS: BP 126/85
[2018-03-19] MEDS: K and/or MAG REPLACEMENT MC SCH (08:00)
[2018-03-19] MEDS: normal saline 1000ml 1,000 ML IV SCH ×3 (08:36→23:20)
[2018-03-19] MEDS: ertapenem sod inj 1 GM in normal saline 100ml IV soln 100 ML IV SCH (08:59)
[2018-03-19] MEDS: LIPASE PO SCH ×2 (09:02→17:52)
[2018-03-19] MEDS: AMYLASE PO SCH ×2 (09:02→17:52)
[2018-03-19] MEDS: PROTEASE PO SCH ×2 (09:02→17:52)
[2018-03-19] MEDS: lisinopril 20mg tablet PO SCH (09:03)
[2018-03-19] MEDS: multivitamins, therapeutics tablet PO SCH (09:03)
[2018-03-19] MEDS: heparin, porcine 5000 units/ml vial SQ SCH ×2 (09:05→21:37)
[2018-03-19] MEDS: insulin Lispro (HumaLOG) vial - multi-dose SQ SCH ×2 (09:21→19:21)
[2018-03-19] MEDS: ondansetron/PF 4mg/2ml inj IV PRN (10:43)
[2018-03-19] MEDS ORDERED: AMYLASE PO SCH ×2 (13:25)
[2018-03-19] MEDS ORDERED: LIPASE PO SCH ×2 (13:25)
[2018-03-19] MEDS ORDERED: PROTEASE PO SCH ×2 (13:25)
[2018-03-19 18:30] VITALS: BP 163/112
[2018-03-19 19:30] VITALS: BP 104/70
[2018-03-19] MEDS: insulin glargine (Lantus) pen - multi-dose SQ SCH ×2 (21:00→21:43)
[2018-03-20] VITALS: BP 128/83
[2018-03-20] MEDS: morphine 2 MG/ML inj. syringe IV PRN ×3 (00:05→08:20)
[2018-03-20 05:39] LABS: BASOPHILS # (AUTO) 0.1 X10'3 (0-0.2); BASOPHILS % (AUTO) 1.6 % (0-1); EOSINOPHILS # (AUTO) 0.2 X10'3 (0-0.9); HEMATOCRIT 27.9 % (35.0-45.0); HEMOGLOBIN 9.5 g/dl (12.0-16.0); LYMPHOCYTES # (AUTO) 2.5 X10'3 (1.1-4.8); LYMPHOCYTES % (AUTO) 34.2 % (21-51); MEAN CORPUSCULAR HEMOGLOBIN 28.7 PG (27.0-31.0); MEAN CORPUSCULAR VOLUME 84.5 FL (78-98); MEAN PLATELET VOLUME 10.6 FL (7.4-10.4); MONOCYTES # (AUTO) 0.6 X10'3 (0-0.9); MONOCYTES % (AUTO) 7.8 % (2-12); NEUTROPHILS # (AUTO) 4.1 X10'3 (1.8-7.7); NEUTROPHILS % (AUTO) 53.4 % (42-75); PLATELET COUNT 265 X10'3 (140-440); RED CELL DISTRIBUTION WIDTH 12.9 % (11.5-14.5); WHITE BLOOD COUNT 7.4 X10'3 (4.5-11.0)
[2018-03-20 05:44] LABS: ALANINE AMINOTRANSFERASE 22 U/L (12-78); ALBUMIN 2.3 G/DL (3.4-5.0); ALBUMIN/GLOBULIN RATIO 0.6 (1.1-1.5); ALKALINE PHOSPHATASE 153 IU/L (46-116); ANION GAP 7 (8-16); ASPARTATE AMINO TRANSFERASE 17 U/L (10-37); BILIRUBIN,TOTAL 0.2 MG/DL (0.1-1.0); BLOOD UREA NITROGEN 17 MG/DL (7-18); BUN/CREATININE RATIO 19.5 (6.6-38.0); CHLORIDE 102 MMOL/L (99-107); CREATININE 0.87 MG/DL (0.40-0.90); GLUCOSE 331 MG/DL (70-104); MAGNESIUM 1.8 MG/DL (1.5-2.4); POTASSIUM 4.5 MMOL/L (3.5-5.1); SODIUM 137 MMOL/L (135-145); TOTAL PROTEIN 5.9 G/DL (6.4-8.2); eGFR 75 ML/MIN
[2018-03-20] MEDS: K and/or MAG REPLACEMENT MC SCH (06:59)
[2018-03-20 07:19] VITALS: BP 117/82
[2018-03-20] MEDS: normal saline 1000ml 1,000 ML IV SCH (08:18)
[2018-03-20] MEDS: lisinopril 20mg tablet PO SCH (08:19)
[2018-03-20] MEDS: multivitamins, therapeutics tablet PO SCH (08:19)
[2018-03-20] MEDS: heparin, porcine 5000 units/ml vial SQ SCH (08:19)
[2018-03-20] MEDS: ertapenem sod inj 1 GM in normal saline 100ml IV soln 100 ML IV SCH (08:19)
[2018-03-20] MEDS: insulin Lispro (HumaLOG) vial - multi-dose SQ SCH ×2 (08:42→13:44)
[2018-03-20] MEDS: AMYLASE PO SCH ×2 (08:43→12:28)
[2018-03-20] MEDS: PROTEASE PO SCH ×2 (08:43→12:28)
[2018-03-20] MEDS: LIPASE PO SCH ×2 (08:43→12:28)
[2018-03-20 11:18] VITALS: BP 109/74
[2018-03-20] MEDS ORDERED: ERTA1VIA2 IV (11:48)
[2018-03-20] MEDS ORDERED: HYDROcodone/acetaminophen 10/325mg tab PO PRN (12:20)
== END 2018-03-20 14:02 | disposition home IV services (08) | DRG 463 ==
LOC: ER 09:19 → ED HOLD 12:36 → SUR 3N 16:01
PROVIDERS: ADMIT Internal Medicine; ATTEND Internal Medicine
DX: N39.0 Urinary tract infection, site not specified (principal); E11.65 Type 2 diabetes mellitus with hyperglycemia; I10 Essential (primary) hypertension; G89.29 Other chronic pain; E78.00 Pure hypercholesterolemia, unspecified; J45.909 Unspecified asthma, uncomplicated; B96.20 Unspecified Escherichia coli [E. coli] as the cause of diseases classified elsewhere; Z16.24 Resistance to multiple antibiotics; F32.9 Major depressive disorder, single episode, unspecified; F41.9 Anxiety disorder, unspecified; M54.9 Dorsalgia, unspecified; Z87.11 Personal history of peptic ulcer disease; Z88.5 Allergy status to narcotic agent; Z88.8 Allergy status to other drugs, medicaments and biological substances; Z90.49 Acquired absence of other specified parts of digestive tract
CPT/HCPCS: 36415; 76775; 80053; 81001; 81025; 82948; 83036; 83690; 83735; 85025; 87070; 87077; 87088; 87186; 96361; 96374; 96375; 99285; J1335; J1644; J1815; J2270; J2405; J7030

== ENCOUNTER 2018-04-03 23:03 | Inpatient (IN) | payer MEDICAID ==
[~2018-04-03] VITALS: Ht 167.6 cm; Wt 66.9 kg
[~2018-04-03 23:03] MED LIST changes: -AMYL1CAP57 PO; +LIPA1CAP18 PO; -NITR100C6 PO; -ONDA4TAB6 PO; +PIOG30TA10 PO
[2018-04-04] MEDS ORDERED: vancomycin/NS 1 GM ADD-VANTAGE 250 ML IV ONE (00:05)
[2018-04-04] MEDS ORDERED: ondansetron/PF 4mg/2ml inj IV ONE (00:05)
[2018-04-04] MEDS ORDERED: piperacillin/tazo 3.375gm/50ml 50 ML IV ONE (00:05)
[2018-04-04] MEDS ORDERED: normal saline 1000ML IV soln IV ONE (00:05)
[2018-04-04] MEDS: MORPHINE 2MG in 2ml NS syringe IV PRN ×4 (00:23→08:17)
[2018-04-04 00:37] LABS: BASOPHILS # (AUTO) 0.1 X10'3 (0-0.2); BASOPHILS % (AUTO) 0.9 % (0-1); EOSINOPHILS # (AUTO) 0.3 X10'3 (0-0.9); EOSINOPHILS % (AUTO) 3.4 % (0-6); HEMATOCRIT 31.8 % (35.0-45.0); LYMPHOCYTES % (AUTO) 23.1 % (21-51); MEAN CORPUSCULAR HEMOGLOBIN 29.3 PG (27.0-31.0); MEAN CORPUSCULAR HGB CONC 34.7 % (33.0-36.5); MEAN CORPUSCULAR VOLUME 84.5 FL (78-98); MEAN PLATELET VOLUME 9.6 FL (7.4-10.4); MONOCYTES # (AUTO) 0.4 X10'3 (0-0.9); MONOCYTES % (AUTO) 5.1 % (2-12); NEUTROPHILS # (AUTO) 5.8 X10'3 (1.8-7.7); NEUTROPHILS % (AUTO) 67.5 % (42-75); PLATELET COUNT 338 X10'3 (140-440); RED BLOOD COUNT 3.76 X10'6 (4.20-5.60); WHITE BLOOD COUNT 8.6 X10'3 (4.5-11.0)
[2018-04-04 01:04] LABS: ALANINE AMINOTRANSFERASE 22 U/L (12-78); ALBUMIN/GLOBULIN RATIO 0.6 (1.1-1.5); ALKALINE PHOSPHATASE 236 IU/L (46-116); ANION GAP 11 (8-16); ASPARTATE AMINO TRANSFERASE 19 U/L (10-37); BILIRUBIN,TOTAL 0.2 MG/DL (0.1-1.0); BLOOD UREA NITROGEN 8 MG/DL (7-18); BUN/CREATININE RATIO 8.2 (6.6-38.0); CALCIUM 8.1 MG/DL (8.5-10.1); CHLORIDE 91 MMOL/L (99-107); CREATININE 0.97 MG/DL (0.40-0.90); MAGNESIUM 1.6 MG/DL (1.5-2.4); SODIUM 128 MMOL/L (135-145); TOTAL CARBON DIOXIDE 25.6 MMOL/L (24-32); eGFR 66 ML/MIN
[2018-04-04 01:07] LABS: GLUCOSE 576 MG/DL (70-104)
[2018-04-04] MEDS ORDERED: potassium Cl 20 mEq SR tablet PO STA (01:13)
[2018-04-04] MEDS ORDERED: insulin regular, human 10 units/0.1 ml syringe IV ONE (03:10)
[2018-04-04] MEDS ORDERED: HYDROcodone/acetaminophen 5mg/325mg tablet PO PRN (05:00)
[2018-04-04] MEDS ORDERED: ondansetron/PF 4mg/2ml inj IV PRN (05:00)
[2018-04-04] MEDS ORDERED: acetaminophen 325mg tablet PO PRN (05:00)
[2018-04-04] MEDS ORDERED: magnesium hydroxide 30ml (MOM) UD suspension PO PRN (05:00)
[2018-04-04] MEDS ORDERED: bisacodyl 10mg suppository rectal RC PRN (05:00)
[2018-04-04] MEDS ORDERED: mag hydrox/Alum hydrox/simeth 30ml oral suspension PO PRN (05:00)
[2018-04-04] MEDS ORDERED: dextrose 50%-water 50ml dispensing syringe IV PRN ×2 (05:05)
[2018-04-04] MEDS ORDERED: MESSAGE TO PHARMACY PO ONE (05:05)
[2018-04-04] MEDS ORDERED: dextrose ORAL solution 15 GM/59 ML bottle PO PRN ×2 (05:05)
[2018-04-04] MEDS ORDERED: glucagon, human recombinant 1mg kit SUBCUT PRN (05:05)
[2018-04-04] MEDS ORDERED: potassium Cl 40MEQ/NS 500ml 500 ML IV PRN ×4 (05:10→10:00)
[2018-04-04] MEDS ORDERED: potassium Cl 20 mEq SR tablet PO PRN ×4 (05:10→10:00)
[2018-04-04] MEDS ORDERED: lipase/protease/amylase 20,000 unit capsule.DR PO SCH (06:15)
[2018-04-04] MEDS: lipase/protease/amylase 20,000 unit capsule.DR PO SCH ×2 (07:00→12:00)
[2018-04-04] MEDS ORDERED: lisinopril 20mg tablet PO SCH (08:00)
[2018-04-04] MEDS: piperacillin/tazo 3.375gm/50ml 50 ML IV SCH ×3 (08:16→23:44)
[2018-04-04] MEDS: multivitamins, therapeutics tablet PO SCH (08:17)
[2018-04-04] MEDS: normal saline 1000ml 1,000 ML IV SCH (08:17)
[2018-04-04 10:00] VITALS: BP 165/111
[2018-04-04] MEDS ORDERED: magnesium 4gm in 100ml NS 100 ML IV PRN (10:00)
[2018-04-04] MEDS ORDERED: magnesium Cl slow-release 64mg tablet PO PRN (10:00)
[2018-04-04] MEDS ORDERED: magnesium/D5W IVPB 100 ML IV PRN (10:00)
[2018-04-04] MEDS: insulin Lispro (HumaLOG) vial - multi-dose SQ SCH ×2 (12:11→19:04)
[2018-04-04 12:21] VITALS: BP 137/91
[2018-04-04] MEDS: vancomycin/NS 1 GM ADD-VANTAGE 250 ML IV SCH (13:18)
[2018-04-04] MEDS: HYDROcodone/acetaminophen 10/325mg tab PO PRN ×2 (16:49→21:08)
[2018-04-04] MEDS ORDERED: hydrALAZINE 20mg/ml inj. IV PRN (19:50)
[2018-04-04] MEDS ORDERED: lisinopril 10 MG tablet PO ONE (19:50)
[2018-04-04 20:00] VITALS: BP 165/104
[2018-04-04] MEDS: amitriptyline 25mg tablet PO SCH (21:08)
[2018-04-04] MEDS: lactobacillus rhamnosus 10,000 MMU CELLS/CAPSULE PO SCH (21:08)
[2018-04-04] MEDS: insulin glargine (Lantus) pen - multi-dose SQ SCH (21:16)
[2018-04-05] VITALS: BP 129/91
[2018-04-05] MEDS: vancomycin/NS 1 GM ADD-VANTAGE 250 ML IV SCH ×2 (01:07→13:31)
[2018-04-05 06:38] LABS: BASOPHILS % (AUTO) 0.6 % (0-1); EOSINOPHILS # (AUTO) 0.4 X10'3 (0-0.9); EOSINOPHILS % (AUTO) 4.8 % (0-6); HEMATOCRIT 29.1 % (35.0-45.0); HEMOGLOBIN 9.9 g/dl (12.0-16.0); LYMPHOCYTES # (AUTO) 2.4 X10'3 (1.1-4.8); LYMPHOCYTES % (AUTO) 31.3 % (21-51); MEAN CORPUSCULAR HEMOGLOBIN 28.6 PG (27.0-31.0); MEAN CORPUSCULAR HGB CONC 33.8 % (33.0-36.5); MEAN CORPUSCULAR VOLUME 84.4 FL (78-98); MEAN PLATELET VOLUME 9.3 FL (7.4-10.4); MONOCYTES # (AUTO) 0.7 X10'3 (0-0.9); MONOCYTES % (AUTO) 9.1 % (2-12); NEUTROPHILS # (AUTO) 4.1 X10'3 (1.8-7.7); NEUTROPHILS % (AUTO) 54.2 % (42-75); PLATELET COUNT 330 X10'3 (140-440); RED BLOOD COUNT 3.45 X10'6 (4.20-5.60); WHITE BLOOD COUNT 7.6 X10'3 (4.5-11.0)
[2018-04-05 07:00] VITALS: BP 156/108
[2018-04-05 07:07] LABS: ALANINE AMINOTRANSFERASE 25 U/L (12-78); ALBUMIN 2.6 G/DL (3.4-5.0); ALBUMIN/GLOBULIN RATIO 0.6 (1.1-1.5); ALKALINE PHOSPHATASE 163 IU/L (46-116); ANION GAP 7 (8-16); ASPARTATE AMINO TRANSFERASE 25 U/L (10-37); BILIRUBIN,TOTAL 0.3 MG/DL (0.1-1.0); BLOOD UREA NITROGEN 14 MG/DL (7-18); BUN/CREATININE RATIO 16.5 (6.6-38.0); CALCIUM 8.2 MG/DL (8.5-10.1); CHLORIDE 101 MMOL/L (99-107); CREATININE 0.85 MG/DL (0.40-0.90); GLUCOSE 271 MG/DL (70-104); MAGNESIUM 1.6 MG/DL (1.5-2.4); PHOSPHORUS 2.7 MG/DL (2.3-4.5); POTASSIUM 4.1 MMOL/L (3.5-5.1); SODIUM 136 MMOL/L (135-145); TOTAL CARBON DIOXIDE 27.7 MMOL/L (24-32); TOTAL PROTEIN 6.8 G/DL (6.4-8.2); eGFR 77 ML/MIN
[2018-04-05] MEDS: HYDROcodone/acetaminophen 10/325mg tab PO PRN ×3 (07:54→20:02)
[2018-04-05] MEDS: piperacillin/tazo 3.375gm/50ml 50 ML IV SCH ×3 (07:55→23:28)
[2018-04-05] MEDS: multivitamins, therapeutics tablet PO SCH (07:55)
[2018-04-05] MEDS: lactobacillus rhamnosus 10,000 MMU CELLS/CAPSULE PO SCH ×2 (07:55→20:01)
[2018-04-05] MEDS ORDERED: lisinopril 10 MG tablet PO SCH (08:00)
[2018-04-05] MEDS: lisinopril 10 MG tablet PO SCH (08:00)
[2018-04-05] MEDS: insulin Lispro (HumaLOG) vial - multi-dose SQ SCH ×2 (09:29→18:56)
[2018-04-05 11:00] VITALS: BP 102/70
[2018-04-05] MEDS ORDERED: VANCOMYCIN LEVEL IV ONE (12:30)
[2018-04-05 20:00] VITALS: BP 165/102
[2018-04-05] MEDS: amitriptyline 25mg tablet PO SCH (21:15)
[2018-04-05] MEDS: insulin glargine (Lantus) pen - multi-dose SQ SCH (21:28)
[2018-04-06] VITALS: BP 116/89
[2018-04-06] MEDS: vancomycin/NS 1 GM ADD-VANTAGE 250 ML IV SCH ×2 (00:52→13:28)
[2018-04-06] MEDS: HYDROcodone/acetaminophen 10/325mg tab PO PRN ×4 (02:08→22:55)
[2018-04-06] MEDS: normal saline 1000ml 1,000 ML IV SCH (04:57)
[2018-04-06 06:15] LABS: BASOPHILS # (AUTO) 0.1 X10'3 (0-0.2); BASOPHILS % (AUTO) 0.7 % (0-1); EOSINOPHILS # (AUTO) 0.4 X10'3 (0-0.9); EOSINOPHILS % (AUTO) 4.8 % (0-6); HEMATOCRIT 28.8 % (35.0-45.0); HEMOGLOBIN 9.8 g/dl (12.0-16.0); LYMPHOCYTES # (AUTO) 2.5 X10'3 (1.1-4.8); MEAN CORPUSCULAR HEMOGLOBIN 29.1 PG (27.0-31.0); MEAN CORPUSCULAR HGB CONC 34.2 % (33.0-36.5); MEAN CORPUSCULAR VOLUME 84.9 FL (78-98); MEAN PLATELET VOLUME 9.4 FL (7.4-10.4); MONOCYTES # (AUTO) 0.7 X10'3 (0-0.9); MONOCYTES % (AUTO) 9.3 % (2-12); NEUTROPHILS # (AUTO) 3.8 X10'3 (1.8-7.7); NEUTROPHILS % (AUTO) 51.2 % (42-75); PLATELET COUNT 323 X10'3 (140-440); RED BLOOD COUNT 3.39 X10'6 (4.20-5.60); RED CELL DISTRIBUTION WIDTH 14.1 % (11.5-14.5); WHITE BLOOD COUNT 7.4 X10'3 (4.5-11.0)
[2018-04-06 06:38] LABS: ALANINE AMINOTRANSFERASE 17 U/L (12-78); ALBUMIN 2.5 G/DL (3.4-5.0); ALBUMIN/GLOBULIN RATIO 0.6 (1.1-1.5); ALKALINE PHOSPHATASE 150 IU/L (46-116); ANION GAP 7 (8-16); ASPARTATE AMINO TRANSFERASE 18 U/L (10-37); BILIRUBIN,TOTAL 0.3 MG/DL (0.1-1.0); CALCIUM 8.5 MG/DL (8.5-10.1); CHLORIDE 101 MMOL/L (99-107); CREATININE 0.84 MG/DL (0.40-0.90); GLUCOSE 310 MG/DL (70-104); MAGNESIUM 1.7 MG/DL (1.5-2.4); PHOSPHORUS 3.5 MG/DL (2.3-4.5); POTASSIUM 4.1 MMOL/L (3.5-5.1); SODIUM 135 MMOL/L (135-145); TOTAL CARBON DIOXIDE 27.1 MMOL/L (24-32); TOTAL PROTEIN 6.6 G/DL (6.4-8.2); eGFR 78 ML/MIN
[2018-04-06 07:11] LABS: BLOOD UREA NITROGEN 17 MG/DL (7-18); BUN/CREATININE RATIO 20.2 (6.6-38.0)
[2018-04-06 08:00] VITALS: BP 129/80
[2018-04-06] MEDS: lisinopril 10 MG tablet PO SCH (08:00)
[2018-04-06] MEDS: lactobacillus rhamnosus 10,000 MMU CELLS/CAPSULE PO SCH ×2 (08:00→19:27)
[2018-04-06] MEDS: piperacillin/tazo 3.375gm/50ml 50 ML IV SCH ×3 (08:00→23:05)
[2018-04-06] MEDS: multivitamins, therapeutics tablet PO SCH (08:01)
[2018-04-06] MEDS: insulin Lispro (HumaLOG) vial - multi-dose SQ SCH ×3 (08:54→22:59)
[2018-04-06 11:58] VITALS: BP 160/97
[2018-04-06] MEDS: morphine 2 MG/ML inj. syringe IV PRN ×2 (13:33→19:28)
[2018-04-06 19:00] VITALS: BP 146/102
[2018-04-06] MEDS: insulin glargine (Lantus) pen - multi-dose SQ SCH (21:00)
[2018-04-06] MEDS: amitriptyline 25mg tablet PO SCH (22:44)
[2018-04-07] VITALS: BP 108/79
[2018-04-07] MEDS: vancomycin/NS 1 GM ADD-VANTAGE 250 ML IV SCH (01:00)
[2018-04-07] MEDS: morphine 2 MG/ML inj. syringe IV PRN ×2 (01:09→07:15)
[2018-04-07 04:34] LABS: BASOPHILS # (AUTO) 0.1 X10'3 (0-0.2); BASOPHILS % (AUTO) 1.7 % (0-1); EOSINOPHILS # (AUTO) 0.2 X10'3 (0-0.9); EOSINOPHILS % (AUTO) 3.3 % (0-6); HEMATOCRIT 30.5 % (35.0-45.0); HEMOGLOBIN 10.5 g/dl (12.0-16.0); LYMPHOCYTES # (AUTO) 2.3 X10'3 (1.1-4.8); LYMPHOCYTES % (AUTO) 30.5 % (21-51); MEAN CORPUSCULAR HEMOGLOBIN 29.1 PG (27.0-31.0); MEAN CORPUSCULAR HGB CONC 34.4 % (33.0-36.5); MEAN CORPUSCULAR VOLUME 84.5 FL (78-98); MEAN PLATELET VOLUME 9.3 FL (7.4-10.4); MONOCYTES # (AUTO) 0.5 X10'3 (0-0.9); NEUTROPHILS # (AUTO) 4.3 X10'3 (1.8-7.7); NEUTROPHILS % (AUTO) 57.5 % (42-75); PLATELET COUNT 375 X10'3 (140-440); RED BLOOD COUNT 3.61 X10'6 (4.20-5.60); RED CELL DISTRIBUTION WIDTH 13.7 % (11.5-14.5); WHITE BLOOD COUNT 7.5 X10'3 (4.5-11.0)
[2018-04-07 04:57] LABS: ALANINE AMINOTRANSFERASE 21 U/L (12-78); ALBUMIN 2.8 G/DL (3.4-5.0); ALBUMIN/GLOBULIN RATIO 0.6 (1.1-1.5); ALKALINE PHOSPHATASE 155 IU/L (46-116); ANION GAP 8 (8-16); ASPARTATE AMINO TRANSFERASE 14 U/L (10-37); BILIRUBIN,TOTAL 0.3 MG/DL (0.1-1.0); BLOOD UREA NITROGEN 16 MG/DL (7-18); BUN/CREATININE RATIO 18.6 (6.6-38.0); CALCIUM 8.8 MG/DL (8.5-10.1); CHLORIDE 99 MMOL/L (99-107); CREATININE 0.86 MG/DL (0.40-0.90); GLUCOSE 203 MG/DL (70-104); MAGNESIUM 1.7 MG/DL (1.5-2.4); PHOSPHORUS 3.7 MG/DL (2.3-4.5); POTASSIUM 3.7 MMOL/L (3.5-5.1); SODIUM 135 MMOL/L (135-145); TOTAL CARBON DIOXIDE 28.3 MMOL/L (24-32); TOTAL PROTEIN 7.5 G/DL (6.4-8.2); eGFR 76 ML/MIN
[2018-04-07] MEDS: HYDROcodone/acetaminophen 10/325mg tab PO PRN ×2 (05:44→10:06)
[2018-04-07] MEDS: piperacillin/tazo 3.375gm/50ml 50 ML IV SCH (07:15)
[2018-04-07] MEDS: lactobacillus rhamnosus 10,000 MMU CELLS/CAPSULE PO SCH (07:15)
[2018-04-07] MEDS: lisinopril 10 MG tablet PO SCH (07:15)
[2018-04-07] MEDS: multivitamins, therapeutics tablet PO SCH (07:15)
[2018-04-07 07:41] VITALS: BP 167/96
[2018-04-07] MEDS ORDERED: AMOX-419 PO (10:50)
== END 2018-04-07 13:45 | disposition home or self-care (01) | DRG 383 ==
LOC: ER 23:04 → ED HOLD 04-04 04:57 → SUR 3N 04-04 09:17
PROVIDERS: ADMIT Emergency Medicine; ATTEND Family Medicine
DX: L03.114 Cellulitis of left upper limb (principal); E11.649 Type 2 diabetes mellitus with hypoglycemia without coma; E11.65 Type 2 diabetes mellitus with hyperglycemia; I10 Essential (primary) hypertension; K86.1 Other chronic pancreatitis; F32.9 Major depressive disorder, single episode, unspecified; E78.1 Pure hyperglyceridemia; E78.00 Pure hypercholesterolemia, unspecified; E78.5 Hyperlipidemia, unspecified; F41.8 Other specified anxiety disorders; E87.6 Hypokalemia; B95.2 Enterococcus as the cause of diseases classified elsewhere; Z16.39 Resistance to other specified antimicrobial drug; M54.9 Dorsalgia, unspecified; G89.29 Other chronic pain; X08.8XXA Exposure to other specified smoke, fire and flames, initial encounter; L03.113 Cellulitis of right upper limb; F41.9 Anxiety disorder, unspecified; J45.909 Unspecified asthma, uncomplicated; Z87.11 Personal history of peptic ulcer disease; Z90.49 Acquired absence of other specified parts of digestive tract; Z87.440 Personal history of urinary (tract) infections; Z88.5 Allergy status to narcotic agent; Z88.8 Allergy status to other drugs, medicaments and biological substances; Y93.89 Activity, other specified; Y92.89 Other specified places as the place of occurrence of the external cause; Y99.8 Other external cause status
CPT/HCPCS: 36415; 73130; 80053; 80202; 82948; 83605; 83735; 84100; 84132; 84145; 85025; 87040; 87070; 87077; 87186; 99285; A4649; A6196; A6222; A6223; A6446; A6449; J1815; J2270; J2274; J2405; J2543; J3370; J7030

== ENCOUNTER 2018-04-14 09:13 | Day surgery (SDC) | payer MEDICAID ==
[~2018-04-14 09:13] MED LIST changes: +AMOX-419 PO; -HYDR-3964
[2018-04-14] MEDS ORDERED: LIDOcaine 2% 5ml jelly ONE (09:59)
== END 2018-04-14 10:32 | disposition home or self-care (01) ==
LOC: WOUND CARE 09:13
PROVIDERS: ATTEND Surgery
DX: T23.362D Burn of third degree of back of left hand, subsequent encounter (principal); S61.402D Unspecified open wound of left hand, subsequent encounter; X12.XXXD Contact with other hot fluids, subsequent encounter; Y92.010 Kitchen of single-family (private) house as the place of occurrence of the external cause; E11.8 Type 2 diabetes mellitus with unspecified complications; I10 Essential (primary) hypertension; Z87.891 Personal history of nicotine dependence
CPT/HCPCS: 36416; 82948; 97597; A6196; A6446

== ENCOUNTER 2018-04-20 20:29 | Emergency (ER) | payer MEDICAID ==
[~2018-04-20] VITALS: Ht 167.6 cm; Wt 63.8 kg
[~2018-04-20 20:29] MED LIST changes: -AMOX-419 PO
[2018-04-20 20:43] VITALS: BP 113/84
[2018-04-20] MEDS ORDERED: HYDROmorphone 1 mg/ml syringe IM ONE (21:25)
[2018-04-20] MEDS ORDERED: HYDR-3965 PO (21:40)
== END 2018-04-20 21:51 | disposition home or self-care (01) ==
LOC: ER 20:30
DX: T23.302D Burn of third degree of left hand, unspecified site, subsequent encounter (principal); E78.00 Pure hypercholesterolemia, unspecified; I10 Essential (primary) hypertension; J45.909 Unspecified asthma, uncomplicated; E11.9 Type 2 diabetes mellitus without complications; Z90.49 Acquired absence of other specified parts of digestive tract; Z98.890 Other specified postprocedural states; Z56.0 Unemployment, unspecified; Z88.5 Allergy status to narcotic agent; Z88.8 Allergy status to other drugs, medicaments and biological substances; Z79.4 Long term (current) use of insulin; Z79.899 Other long term (current) drug therapy; X08.8XXD Exposure to other specified smoke, fire and flames, subsequent encounter
CPT/HCPCS: 96372; 99283; A6223; A6449; J1170

== ENCOUNTER 2018-04-27 13:04 | Emergency (ER) | payer MEDICAID ==
[~2018-04-27] VITALS: Ht 167.6 cm; Wt 63.0 kg
[~2018-04-27 13:04] MED LIST changes: +HYDR-3965 PO
[2018-04-27 14:09] VITALS: BP 141/103
[2018-04-27] MEDS ORDERED: mupirocin 2% ointment 22GM TP STA (14:14)
[2018-04-27] MEDS ORDERED: HYDROcodone/acetaminophen 10/325mg tab PO ONE (14:15)
[2018-04-27] MEDS ORDERED: mupirocin 2% nasal ointment 1gm UD NS STA (14:18)
== END 2018-04-27 14:36 | disposition home or self-care (01) ==
LOC: ER 13:04
DX: L08.9 Local infection of the skin and subcutaneous tissue, unspecified (principal); M79.642 Pain in left hand; G89.29 Other chronic pain; E78.00 Pure hypercholesterolemia, unspecified; I10 Essential (primary) hypertension; J45.909 Unspecified asthma, uncomplicated; E11.9 Type 2 diabetes mellitus without complications; Z87.11 Personal history of peptic ulcer disease; Z90.49 Acquired absence of other specified parts of digestive tract; Z98.890 Other specified postprocedural states; Z56.0 Unemployment, unspecified; Z88.5 Allergy status to narcotic agent; Z88.6 Allergy status to analgesic agent; Z91.018 Allergy to other foods; Z79.899 Other long term (current) drug therapy
CPT/HCPCS: 99283; A6222

== ENCOUNTER 2018-04-28 09:51 | Outpatient (CLI) | payer MEDICAID | END 2018-04-28 12:15 | disposition home or self-care (01) | LOC: WOUND CARE 09:51 → EDSTATUS 10:00 → WOUND CARE 12:15 | PROVIDERS: ATTEND Surgery | DX: T23.302D Burn of third degree of left hand, unspecified site, subsequent encounter (principal); I10 Essential (primary) hypertension; E78.00 Pure hypercholesterolemia, unspecified; E11.65 Type 2 diabetes mellitus with hyperglycemia; E11.649 Type 2 diabetes mellitus with hypoglycemia without coma; J45.909 Unspecified asthma, uncomplicated; E78.5 Hyperlipidemia, unspecified; F41.9 Anxiety disorder, unspecified; F32.9 Major depressive disorder, single episode, unspecified; Z79.899 Other long term (current) drug therapy; Z90.49 Acquired absence of other specified parts of digestive tract; Z98.890 Other specified postprocedural states; Z79.4 Long term (current) use of insulin; Z87.440 Personal history of urinary (tract) infections; Z87.11 Personal history of peptic ulcer disease; X08.8XXD Exposure to other specified smoke, fire and flames, subsequent encounter | CPT/HCPCS: 36416; 82948; 99215; A6196; A6446 ==

== ENCOUNTER 2018-05-04 11:29 | Day surgery (SDC) | payer MEDICAID ==
[2018-05-04] MEDS ORDERED: LIDOcaine 2% 5ml jelly ONE (12:51)
[2018-05-04] MEDS ORDERED: LIDOcaine 1%/PF 5ML 10 MG/ML VIAL ONE (13:04)
== END 2018-05-04 13:28 | disposition home or self-care (01) ==
LOC: WOUND CARE 11:29
PROVIDERS: ATTEND Surgery
DX: T23.302D Burn of third degree of left hand, unspecified site, subsequent encounter (principal); L98.492 Non-pressure chronic ulcer of skin of other sites with fat layer exposed; I10 Essential (primary) hypertension; E78.00 Pure hypercholesterolemia, unspecified; E11.65 Type 2 diabetes mellitus with hyperglycemia; E11.649 Type 2 diabetes mellitus with hypoglycemia without coma; J45.909 Unspecified asthma, uncomplicated; E78.5 Hyperlipidemia, unspecified; F41.9 Anxiety disorder, unspecified; F32.9 Major depressive disorder, single episode, unspecified; Z79.899 Other long term (current) drug therapy; Z90.49 Acquired absence of other specified parts of digestive tract; Z98.890 Other specified postprocedural states; Z79.4 Long term (current) use of insulin; Z87.440 Personal history of urinary (tract) infections; Z87.11 Personal history of peptic ulcer disease; X08.8XXD Exposure to other specified smoke, fire and flames, subsequent encounter
CPT/HCPCS: 36416; 82948; 97597; A6021; A6206; A6212; J2001

== ENCOUNTER 2018-05-18 15:31 | Emergency (ER) | payer MEDICAID ==
[~2018-05-18] VITALS: Ht 167.6 cm; Wt 64.0 kg
[2018-05-18 15:55] LABS: BASOPHILS % (AUTO) 0.3 % (0-1); EOSINOPHILS # (AUTO) 0.1 X10'3 (0-0.9); EOSINOPHILS % (AUTO) 1.8 % (0-6); HEMATOCRIT 34.6 % (35.0-45.0); HEMOGLOBIN 11.8 g/dl (12.0-16.0); LYMPHOCYTES # (AUTO) 1.7 X10'3 (1.1-4.8); LYMPHOCYTES % (AUTO) 20.4 % (21-51); MEAN CORPUSCULAR HEMOGLOBIN 28.9 PG (27.0-31.0); MEAN CORPUSCULAR VOLUME 84.9 FL (78-98); MEAN PLATELET VOLUME 9.2 FL (7.4-10.4); MONOCYTES # (AUTO) 0.4 X10'3 (0-0.9); MONOCYTES % (AUTO) 4.4 % (2-12); NEUTROPHILS # (AUTO) 5.9 X10'3 (1.8-7.7); NEUTROPHILS % (AUTO) 73.1 % (42-75); PLATELET COUNT 302 X10'3 (140-440); RED BLOOD COUNT 4.07 X10'6 (4.20-5.60); RED CELL DISTRIBUTION WIDTH 13.3 % (11.5-14.5); WHITE BLOOD COUNT 8.1 X10'3 (4.5-11.0)
[2018-05-18 15:56] LABS: URINE HCG NEGATIVE (NEG)
[2018-05-18 15:59] LABS: CLARITY,URINE SLIGHTLY CLOUDY (Clear); COLOR,URINE YELLOW (Yellow); GLUCOSE, URINE >=1000 mg/dl (Neg); KETONES,URINE NEGATIVE (Neg); LEUKOCYTE ESTERASE ,URINE TRACE (Neg); NITRITES, URINE POSITIVE (Neg); OCCULT BLOOD,URINE TRACE-INTACT (Neg); PROTEIN,URINE TRACE mg/dl (Neg); UROBILINOGEN,URINE 0.2 E.U/dL (0.2-1.0)
[2018-05-18 16:03] LABS: UA COLLECTION TYPE CLN CATCH MIDSTREAM
[2018-05-18 16:11] LABS: WBC,URINE 50-100 /HPF (0-4)
[2018-05-18 16:12] LABS: BACTERIA,URINE 4+ /HPF (Neg); MUCUS STRANDS NONE SEEN /LPF (Neg); RBC,URINE 0-2 /HPF (0-2); SQUAMOUS EPITHELIAL CELL,UR FEW /LPF (FEW)
[2018-05-18] MEDS ORDERED: morphine 4 MG/ML inj SYRINge IV ONE (16:15)
[2018-05-18] MEDS ORDERED: proCHLORperazine 10 MG/2 ml inj IV ONE (16:15)
[2018-05-18 16:26] LABS: ALANINE AMINOTRANSFERASE 41 U/L (12-78); ALBUMIN 3.3 G/DL (3.4-5.0); ALBUMIN/GLOBULIN RATIO 0.7 (1.1-1.5); ALKALINE PHOSPHATASE 158 IU/L (46-116); ANION GAP 10 (8-16); BILIRUBIN,TOTAL 0.3 MG/DL (0.1-1.0); BLOOD UREA NITROGEN 11 MG/DL (7-18); BUN/CREATININE RATIO 11.6 (6.6-38.0); CALCIUM 8.1 MG/DL (8.5-10.1); CHLORIDE 89 MMOL/L (99-107); CREATININE 0.95 MG/DL (0.40-0.90); POTASSIUM 3.6 MMOL/L (3.5-5.1); SODIUM 124 MMOL/L (135-145); TOTAL CARBON DIOXIDE 25.4 MMOL/L (24-32); TOTAL PROTEIN 8.3 G/DL (6.4-8.2); eGFR 67 ML/MIN
[2018-05-18 16:31] LABS: GLUCOSE 556 MG/DL (70-104)
[2018-05-18 16:44] LABS: ASPARTATE AMINO TRANSFERASE 26 U/L (10-37); LIPASE < 50 U/L (73-393)
[2018-05-18] MEDS ORDERED: insulin regular, human 10 units/0.1 ml syringe IV ONE (16:45)
[2018-05-18] MEDS ORDERED: normal saline 1000ML IV soln IVB ONE (16:45)
[2018-05-18 19:05] VITALS: BP 135/106
== END 2018-05-18 19:07 | disposition home or self-care (01) ==
LOC: ER 15:31
DX: R10.84 Generalized abdominal pain (principal); E87.1 Hypo-osmolality and hyponatremia; E11.65 Type 2 diabetes mellitus with hyperglycemia; I10 Essential (primary) hypertension; E78.00 Pure hypercholesterolemia, unspecified; J45.909 Unspecified asthma, uncomplicated; G89.29 Other chronic pain; Z90.49 Acquired absence of other specified parts of digestive tract; Z88.5 Allergy status to narcotic agent; Z88.6 Allergy status to analgesic agent; Z79.4 Long term (current) use of insulin; Z79.899 Other long term (current) drug therapy; Z56.0 Unemployment, unspecified
CPT/HCPCS: 36415; 80053; 81001; 81025; 82948; 83690; 85025; 85610; 87077; 87088; 87186; 96361; 96374; 96375; 99284; J0780; J1815; J2270; J7030

== ENCOUNTER 2018-07-01 15:24 | Emergency (ER) | payer MEDICAID ==
[~2018-07-01] VITALS: Ht 167.6 cm; Wt 62.5 kg
[~2018-07-01 15:24] MED LIST changes: -HYDR-3965 PO
[2018-07-01 16:11] LABS: BASOPHILS % (AUTO) 0.3 % (0-1); EOSINOPHILS # (AUTO) 0.1 X10'3 (0-0.9); HEMATOCRIT 33.8 % (35.0-45.0); HEMOGLOBIN 11.6 g/dl (12.0-16.0); LYMPHOCYTES # (AUTO) 1.8 X10'3 (1.1-4.8); LYMPHOCYTES % (AUTO) 26.2 % (21-51); MEAN CORPUSCULAR HGB CONC 34.4 % (33.0-36.5); MEAN CORPUSCULAR VOLUME 84.4 FL (78-98); MEAN PLATELET VOLUME 9.3 FL (7.4-10.4); MONOCYTES # (AUTO) 0.4 X10'3 (0-0.9); MONOCYTES % (AUTO) 5.8 % (2-12); NEUTROPHILS # (AUTO) 4.6 X10'3 (1.8-7.7); NEUTROPHILS % (AUTO) 65.7 % (42-75); PLATELET COUNT 337 X10'3 (140-440); RED BLOOD COUNT 4.01 X10'6 (4.20-5.60); RED CELL DISTRIBUTION WIDTH 13.4 % (11.5-14.5)
[2018-07-01 16:16] LABS: CLARITY,URINE CLOUDY (Clear); COLOR,URINE STRAW (Yellow); GLUCOSE, URINE >=1000 mg/dl (Neg); KETONES,URINE NEGATIVE (Neg); LEUKOCYTE ESTERASE ,URINE NEGATIVE (Neg); NITRITES, URINE POSITIVE (Neg); OCCULT BLOOD,URINE LARGE (Neg); PROTEIN,URINE TRACE mg/dl (Neg); UA COLLECTION TYPE CLN CATCH MIDSTREAM; UROBILINOGEN,URINE 0.2 E.U/dL (0.2-1.0)
[2018-07-01 16:17] LABS: URINE HCG NEGATIVE (NEG)
[2018-07-01 16:23] LABS: PROTHROMBIN TIME 10.3 SECONDS (9.0-12.0)
[2018-07-01 16:25] LABS: BACTERIA,URINE 3+ /HPF (Neg); RBC,URINE 0-2 /HPF (0-2); SQUAMOUS EPITHELIAL CELL,UR MODERATE /LPF (FEW); WBC,URINE 30-50 /HPF (0-4)
[2018-07-01 16:25] LABS: ALANINE AMINOTRANSFERASE 32 U/L (12-78); ALBUMIN 3.6 G/DL (3.4-5.0); ALBUMIN/GLOBULIN RATIO 0.8 (1.1-1.5); ALKALINE PHOSPHATASE 164 IU/L (46-116); ANION GAP 12 (8-16); ASPARTATE AMINO TRANSFERASE 22 U/L (10-37); BILIRUBIN,TOTAL 0.4 MG/DL (0.1-1.0); BLOOD UREA NITROGEN 17 MG/DL (7-18); BUN/CREATININE RATIO 20.5 (6.6-38.0); CHLORIDE 93 MMOL/L (99-107); CREATININE 0.83 MG/DL (0.40-0.90); GLUCOSE 382 MG/DL (70-104); LIPASE < 50 U/L (73-393); SODIUM 129 MMOL/L (135-145); TOTAL CARBON DIOXIDE 23.9 MMOL/L (24-32); TOTAL PROTEIN 8.1 G/DL (6.4-8.2); eGFR 79 ML/MIN
[2018-07-01 16:26] LABS: CALCIUM 8.7 MG/DL (8.5-10.1)
[2018-07-01 16:58] LABS: HCG SERUM QL NEGATIVE
[2018-07-01] MEDS ORDERED: normal saline 1000ML IV soln IV ONE (17:00)
[2018-07-01] MEDS ORDERED: ondansetron/PF 4mg/2ml inj IV ONE (17:00)
[2018-07-01] MEDS ORDERED: morphine 4 MG/ML inj SYRINge IV PRN (17:00)
[2018-07-01] MEDS ORDERED: potassium Cl oral solution 20 MEQ/15 ML PO ONE (17:30)
[2018-07-01 18:01] LABS: ABG BASE EXCESS -2.7 mmol/L (-2.0-3.0); ABG OXYGEN SATURATION 97.1 % (95-98); ABG PCO2 (T) 32.9 mmHg (32.0-45.0); ABG PH (T) 7.423 (7.350-7.450); ABG PO2 (T) 98.4 mmHg (83-108); ALLEN'S TEST Positive; FMetHb 0.3 % (0.3-1.12); FO2Hb 96.8 % (94-100); TOTAL HEMOGLOBIN 11.7 G/dl (12.0-16.0)
[2018-07-01] MEDS ORDERED: metoprolol tartrate 1mg/ml inj IV ONE (18:20)
[2018-07-01] MEDS ORDERED: BACDS PO (18:28)
[2018-07-01] MEDS ORDERED: CefTRIAXone 2gm/D5W 50ml 50 ML IV ONE (18:30)
[2018-07-01] MEDS ORDERED: morphine 4 MG/ML inj SYRINge IV ONE (18:40)
[2018-07-01 19:32] VITALS: BP 160/109
== END 2018-07-01 19:35 | disposition home or self-care (01) ==
LOC: ER 15:25
DX: E86.0 Dehydration (principal); E87.1 Hypo-osmolality and hyponatremia; E87.6 Hypokalemia; N39.0 Urinary tract infection, site not specified; E11.9 Type 2 diabetes mellitus without complications; R10.32 Left lower quadrant pain; R10.12 Left upper quadrant pain; R10.84 Generalized abdominal pain; E78.00 Pure hypercholesterolemia, unspecified; I10 Essential (primary) hypertension; J45.909 Unspecified asthma, uncomplicated; G89.29 Other chronic pain; Z56.0 Unemployment, unspecified; Z90.49 Acquired absence of other specified parts of digestive tract; Z98.890 Other specified postprocedural states; Z88.5 Allergy status to narcotic agent; Z88.6 Allergy status to analgesic agent; Z79.899 Other long term (current) drug therapy; Z79.4 Long term (current) use of insulin
CPT/HCPCS: 36415; 36600; 74176; 80053; 81001; 81025; 82803; 82948; 83605; 83690; 84145; 84703; 85018; 85025; 85610; 87040; 87077; 87088; 87186; 96361; 96365; 96375; 96376; 99285; J0696; J2270; J2405; J3490; J7030

== ENCOUNTER 2018-09-13 19:35 | Emergency (ER) | payer MEDICAID ==
[~2018-09-13] VITALS: Ht 167.6 cm; Wt 55.0 kg
[~2018-09-13 19:35] MED LIST changes: +HYDR-4383 PO; +METO-292 PO; -METO10TA3
[2018-09-13] MEDS ORDERED: normal saline 1000ML IV soln IVB ONE (22:00)
[2018-09-13] MEDS ORDERED: acetaminophen 325mg tablet PO ONE (22:00)
[2018-09-13] MEDS ORDERED: ondansetron 4mg rapidly disintigrating tab PO ONE (22:00)
[2018-09-13 22:15] LABS: BASOPHILS # (AUTO) 0.1 X10'3 (0-0.2); BASOPHILS % (AUTO) 0.8 % (0-1); EOSINOPHILS # (AUTO) 0.2 X10'3 (0-0.9); EOSINOPHILS % (AUTO) 2.5 % (0-6); HEMATOCRIT 33.4 % (35.0-45.0); HEMOGLOBIN 11.2 g/dl (12.0-16.0); LYMPHOCYTES # (AUTO) 2.1 X10'3 (1.1-4.8); LYMPHOCYTES % (AUTO) 25.9 % (21-51); MEAN CORPUSCULAR HEMOGLOBIN 28.9 PG (27.0-31.0); MEAN CORPUSCULAR HGB CONC 33.7 % (33.0-36.5); MEAN CORPUSCULAR VOLUME 85.7 FL (78-98); MEAN PLATELET VOLUME 9.2 FL (7.4-10.4); MONOCYTES # (AUTO) 0.5 X10'3 (0-0.9); MONOCYTES % (AUTO) 5.8 % (2-12); NEUTROPHILS # (AUTO) 5.3 X10'3 (1.8-7.7); PLATELET COUNT 351 X10'3 (140-440); RED BLOOD COUNT 3.89 X10'6 (4.20-5.60); WHITE BLOOD COUNT 8.2 X10'3 (4.5-11.0)
[2018-09-13 22:28] LABS: ALANINE AMINOTRANSFERASE 31 U/L (12-78); ALBUMIN 3.4 G/DL (3.4-5.0); ALBUMIN/GLOBULIN RATIO 0.8 (1.1-1.5); ALKALINE PHOSPHATASE 171 IU/L (46-116); ANION GAP 8 (8-16); ASPARTATE AMINO TRANSFERASE 24 U/L (10-37); BILIRUBIN,TOTAL 0.4 MG/DL (0.1-1.0); BLOOD UREA NITROGEN 11 MG/DL (7-18); BUN/CREATININE RATIO 11.7 (6.6-38.0); CALCIUM 8.6 MG/DL (8.5-10.1); CHLORIDE 92 MMOL/L (99-107); CREATININE 0.94 MG/DL (0.40-0.90); GLUCOSE 383 MG/DL (70-104); LIPASE < 50 U/L (73-393); POTASSIUM 3.5 MMOL/L (3.5-5.1); SODIUM 129 MMOL/L (135-145); TOTAL PROTEIN 7.8 G/DL (6.4-8.2); eGFR 68 ML/MIN
[2018-09-13] MEDS ORDERED: insulin regular, human 10 units/0.1 ml syringe SQ ONE (22:35)
[2018-09-13] MEDS ORDERED: ONDA4TAB6 PO (22:49)
== END 2018-09-13 22:54 | disposition home or self-care (01) ==
LOC: ER 19:36
DX: E10.65 Type 1 diabetes mellitus with hyperglycemia (principal); R11.2 Nausea with vomiting, unspecified; E78.00 Pure hypercholesterolemia, unspecified; I10 Essential (primary) hypertension; J45.909 Unspecified asthma, uncomplicated; E11.9 Type 2 diabetes mellitus without complications; G89.29 Other chronic pain; Z90.49 Acquired absence of other specified parts of digestive tract; Z88.5 Allergy status to narcotic agent; Z88.6 Allergy status to analgesic agent; Z88.8 Allergy status to other drugs, medicaments and biological substances; Z79.899 Other long term (current) drug therapy; Z56.0 Unemployment, unspecified
CPT/HCPCS: 36415; 80053; 82948; 83690; 83735; 85025; 96372; 99283; J1815; J7030

== ENCOUNTER 2018-09-15 00:06 | Emergency (ER) | payer MEDICAID ==
[~2018-09-15] VITALS: Ht 167.6 cm; Wt 70.0 kg
[~2018-09-15 00:06] MED LIST changes: +ONDA4TAB6 PO
[2018-09-15 00:44] LABS: BASOPHILS # (AUTO) 0.1 X10'3 (0-0.2); BASOPHILS % (AUTO) 1.3 % (0-1); EOSINOPHILS # (AUTO) 0.1 X10'3 (0-0.9); EOSINOPHILS % (AUTO) 1.1 % (0-6); HEMATOCRIT 32.1 % (35.0-45.0); HEMOGLOBIN 10.9 g/dl (12.0-16.0); LYMPHOCYTES # (AUTO) 1.9 X10'3 (1.1-4.8); LYMPHOCYTES % (AUTO) 28.5 % (21-51); MEAN CORPUSCULAR HEMOGLOBIN 29.4 PG (27.0-31.0); MEAN CORPUSCULAR VOLUME 86.5 FL (78-98); MEAN PLATELET VOLUME 9.6 FL (7.4-10.4); MONOCYTES # (AUTO) 0.5 X10'3 (0-0.9); MONOCYTES % (AUTO) 7.1 % (2-12); NEUTROPHILS # (AUTO) 4.2 X10'3 (1.8-7.7); PLATELET COUNT 315 X10'3 (140-440); RED BLOOD COUNT 3.71 X10'6 (4.20-5.60); RED CELL DISTRIBUTION WIDTH 12.4 % (11.5-14.5); WHITE BLOOD COUNT 6.8 X10'3 (4.5-11.0)
[2018-09-15 00:46] LABS: URINE HCG NEGATIVE (NEG)
[2018-09-15 00:47] LABS: COLOR,URINE STRAW (Yellow); GLUCOSE, URINE >=1000 mg/dl (Neg); KETONES,URINE NEGATIVE (Neg); LEUKOCYTE ESTERASE ,URINE NEGATIVE (Neg); NITRITES, URINE POSITIVE (Neg); OCCULT BLOOD,URINE TRACE-LYSED (Neg); PROTEIN,URINE NEGATIVE (Neg); UROBILINOGEN,URINE 0.2 E.U/dL (0.2-1.0)
[2018-09-15 00:52] LABS: UA COLLECTION TYPE CLN CATCH MIDSTREAM
[2018-09-15 00:53] LABS: CLARITY,URINE SLIGHTLY CLOUDY (Clear)
[2018-09-15 00:54] LABS: WBC,URINE 20-30 /HPF (0-4)
[2018-09-15 00:55] LABS: BACTERIA,URINE 4+ /HPF (Neg); RBC,URINE 0-2 /HPF (0-2); SQUAMOUS EPITHELIAL CELL,UR FEW /LPF (FEW)
[2018-09-15 01:00] LABS: ALANINE AMINOTRANSFERASE 34 U/L (12-78); ALBUMIN 3.4 G/DL (3.4-5.0); ALBUMIN/GLOBULIN RATIO 0.8 (1.1-1.5); ALKALINE PHOSPHATASE 160 IU/L (46-116); ANION GAP 6 (8-16); ASPARTATE AMINO TRANSFERASE 23 U/L (10-37); BILIRUBIN,TOTAL 0.4 MG/DL (0.1-1.0); CALCIUM 8.3 MG/DL (8.5-10.1); CHLORIDE 88 MMOL/L (99-107); CREATININE 1.03 MG/DL (0.40-0.90); LIPASE < 50 U/L (73-393); POTASSIUM 3.1 MMOL/L (3.5-5.1); SODIUM 124 MMOL/L (135-145); TOTAL CARBON DIOXIDE 30.3 MMOL/L (24-32); TOTAL PROTEIN 7.5 G/DL (6.4-8.2); eGFR 61 ML/MIN
[2018-09-15] MEDS ORDERED: morphine 4 MG/ML inj SYRINge IM ONE (01:00)
[2018-09-15] MEDS ORDERED: CefTRIAXone 1000mg IM Kit (w/lidocaine diluent) IM ONE (01:00)
[2018-09-15] MEDS ORDERED: ondansetron 4mg rapidly disintigrating tab PO ONE (01:00)
[2018-09-15 01:03] LABS: BLOOD UREA NITROGEN 11 MG/DL (7-18)
[2018-09-15 01:06] LABS: GLUCOSE 537 MG/DL (70-104)
[2018-09-15] MEDS ORDERED: potassium Cl 20 mEq SR tablet PO STA (01:09)
[2018-09-15] MEDS ORDERED: insulin regular, human 10 units/0.1 ml syringe IV ONE (01:10)
[2018-09-15] MEDS ORDERED: potassium 10mEq/100ml NS w/LIDOcaine (10mg/bag) IV ONE (01:10)
[2018-09-15] MEDS ORDERED: normal saline 1000ML IV soln IVB ONE ×2 (01:10)
[2018-09-15] MEDS ORDERED: CefTRIAXone/D5W-Rocephin 1gm 50 ML IV ONE (01:35)
[2018-09-15] MEDS ORDERED: ondansetron/PF 4mg/2ml inj IV ONE (01:35)
[2018-09-15 02:04] LABS: BUN/CREATININE RATIO 10.7 (6.6-38.0)
[2018-09-15] MEDS ORDERED: NITR100C6 PO (03:13)
[2018-09-15 04:34] VITALS: BP 138/76
== END 2018-09-15 04:35 | disposition home or self-care (01) ==
LOC: ER 00:07
DX: N39.0 Urinary tract infection, site not specified (principal); E11.65 Type 2 diabetes mellitus with hyperglycemia; R10.30 Lower abdominal pain, unspecified; E78.00 Pure hypercholesterolemia, unspecified; I10 Essential (primary) hypertension; J45.909 Unspecified asthma, uncomplicated; G89.29 Other chronic pain; Z90.49 Acquired absence of other specified parts of digestive tract; K86.1 Other chronic pancreatitis; Z98.890 Other specified postprocedural states; Z56.0 Unemployment, unspecified; Z87.11 Personal history of peptic ulcer disease; Z88.5 Allergy status to narcotic agent; Z88.6 Allergy status to analgesic agent; Z88.8 Allergy status to other drugs, medicaments and biological substances; Z79.4 Long term (current) use of insulin
CPT/HCPCS: 36415; 80053; 81001; 81025; 82948; 83690; 85025; 87077; 87088; 87186; 96361; 96365; 96375; 99283; J0696; J1815; J2405; J3480; J7030; 96368